=== PATIENT | male | born 1945 | race Caucasian/White ===

== ENCOUNTER 2016-09-22 00:22 | Inpatient (IN) | payer MEDICARE ==
--- NOTE | 2016-09-22 00:31 | ED ---
SOB HPI - General Stated Complaint: SOB Time Seen by Provider: 09/22/16 00:22 Source: patient, RN/MD, EMS, RN notes reviewed Mode of arrival: EMS - History of Present Illness Initial Comments: This is a 70-year-old male was seen at [facility] earlier yesterday evening and diagnosed with a pulmonary embolism in a lung mass. He went to the hospital complaining of shortness of breath and pleuritic-type chest pain. The results of the evaluation was he above. He currently denies any chest pain. He has no fevers chills or sweats at this time it is some sweats on the way down he states by ambulance is currently heparinized. He has no other complaints at this time. Is a former smoker who quit about 15 years ago. MD Complaint: shortness of breath, chest pain - Related Data Home Medications Medication Instructions Recorded Confirmed Aspirin 325 mg PO DAILY 09/22/16 09/22/16 Atorvastatin [Lipitor] 40 mg PO HS 09/22/16 09/22/16 Enalapril [Vasotec] 20 mg PO DAILY 09/22/16 09/22/16 Levothyroxine Sodium [Synthroid] 75 mcg PO DAILY 09/22/16 09/22/16 Metoprolol Succinate (ER) [Toprol 50 mg PO DAILY 09/22/16 09/22/16 Xl] buPROPion HCL [Wellbutrin XL] 300 mg PO DAILY 09/22/16 09/22/16 Allergies Allergy/AdvReac Type Severity Reaction Status Date / Time No Known Allergies Allergy Verified 09/22/16 00:29 Review of Systems ROS Statement: Those systems with pertinent positive or pertinent negative responses have been documented in the HPI. ROS Other: All systems not noted in ROS Statement are negative. General Exam - General Exam Comments Initial Comments: This is a well-developed well-nourished awake alert oriented 3 male General appearance: alert, in no apparent distress Head exam: Present: atraumatic, normocephalic, normal inspection Eye exam: Present: normal appearance, PERRL, EOMI. Absent: scleral icterus, conjunctival injection, periorbital swelling ENT exam: Present: normal exam, mucous membranes moist Neck exam: Present: normal inspection. Absent: tenderness, meningismus, lymphadenopathy Respiratory exam: Present: decreased breath sounds. Absent: respiratory distress, wheezes, rales, rhonchi, stridor Cardiovascular Exam: Present: regular rate, normal rhythm, normal heart sounds. Absent: systolic murmur, diastolic murmur, rubs, gallop, clicks GI/Abdominal exam: Present: soft, normal bowel sounds. Absent: distended, tenderness, guarding, rebound, rigid Extremities exam: Present: normal inspection, full ROM, normal capillary refill. Absent: tenderness, pedal edema, joint swelling, calf tenderness Back exam: Present: normal inspection Neurological exam: Present: alert, oriented X3, CN II-XII intact Psychiatric exam: Present: normal affect, normal mood Skin exam: Present: warm, dry, intact, normal color. Absent: rash Course Vital Signs 09/22/16 00:30 Temperature 98.7 F Pulse Rate 71 Respiratory 18 Rate Blood Pressure 123/56 O2 Sat by Pulse 94 L Oximetry Medical Decision Making - Medical Decision Making I discussed the patient's findings with the emergency department physician at [facility] also with Dr. Dawn. Patient be admitted with consultation by S/P ready - EKG Data -: EKG Interpreted by Me EKG shows normal: sinus rhythm (EKG shows a sinus rhythm of 71 with premature atrial complexes CA interval 170 QRS 154 QT/QTC of 474/5:15 evidence a left exodeviation right bundle-branch block nonspecific inferior changes and nonspecific T-wave configuration) Disposition Clinical Impression: Pulmonary embolism, Lung mass Disposition: ADMITTED IP TO THIS HOSP Condition: Serious Referrals: Eric Gardner MD [Primary Care Provider] - 1-2 days
[2016-09-22] MEDS ORDERED: NALOXONE 0.4 MG/ML 1 ML VIAL IV PRN (00:52)
[2016-09-22] MEDS: HEPARIN SODIUM,PORCINE/D5W PMX 25,000 UNIT in DEXTROSE/WATER 1 500ML.BAG IV SCH ×3 (00:57→22:19)
[2016-09-22] MEDS: SODIUM CHLORIDE 0.9% 1,000 ML IV SCH ×2 (01:03→16:10)
[2016-09-22] MEDS: IPRATROPIUM-ALBUTEROL 3 ML NEB INHALATION SCH ×3 (08:03→20:07)
[2016-09-22] MEDS: METOPROLOL SUCCINATE (ER) 50 MG TAB.ER.24H PO SCH (08:19)
[2016-09-22] MEDS: LISINOPRIL 20 MG TAB PO SCH (08:19)
[2016-09-22] MEDS: LEVOTHYROXINE 75 MCG TAB PO SCH (08:19)
[2016-09-22] MEDS: buPROPion XL 300 MG TAB.ER.24H PO SCH (08:19)
[2016-09-22] MEDS: ASPIRIN 325 MG TAB PO SCH (08:21)
[2016-09-22] MEDS: HEPARIN SODIUM,PORCINE 5,000 UNIT/ML 1 ML VIAL IV PRN ×2 (08:30→17:54)
[2016-09-22 08:51] LABS: INR 1.2 (<1.1); Prothrombin Time 12.2 sec (9.0-12.0)
--- NOTE | 2016-09-22 11:46 | US ---
EXAMINATION TYPE: US venous doppler duplex LE BI DATE OF EXAM: 09/22/2016 11:28 AM COMPARISON: Outside CTA chest from yesterday CLINICAL HISTORY: PE. On Heparin SIDE PERFORMED: Bilateral TECHNIQUE: The lower extremity deep venous system is examined utilizing real time linear array sonog jose with graded compression, doppler sonography and color-flow sonography. VESSELS IMAGED: External Iliac Vein (EIV) Common Femoral Vein Deep Femoral Vein Greater Saphenous Vein * Femoral Vein Popliteal Vein Small Saphenous Vein * Proximal Calf Veins (* superficial vessels) Right Leg: Appears negative for acute DVT Left Leg: Appears negative for acute DVT Grayscale, color doppler, spectral doppler imaging performed of the deep veins of the lower extremiti es. There is normal flow, compressibility, vascular waveforms bilaterally. IMPRESSION: No ultrasound evidence for acute DVT in either lower extremity. 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
[2016-09-22] MEDS: PANTOPRAZOLE 40 MG TABLET PO SCH (12:19)
--- NOTE | 2016-09-22 14:27 | P.CNPUL ---
History of Present Illness Consult date: 09/22/16 Reason for consult: pulmonary embolism Chief complaint: Shortness of breath History of present illness: 70 year old male presents to the emergency department from [facility] with shortness of breath and chest pain. The patient states he has been sick for over a week. He had fever and chills at home. He has a cough productive of phlegm. The patient had a CTA of the chest and it showed a right PE and possible mass. The patient states he is a former smoker, quit 15 years ago. He has no history of prior PE/DVT. He is c/o left calf pain. Review of Systems All systems: negative Past Medical History Past Medical History: Coronary Artery Disease (CAD), Hypertension, Myocardial Infarction (GA), Osteoarthritis (OA), Thyroid Disorder Last Myocardial Infarction Date:: 1992 History of Any Multi-Drug Resistant Organisms: None Reported Past Surgical History: AICD, Heart Catheterization With Stent Date of Last Stent Placement:: 1992 Type of Cardiac Device: AICD Device Placement Date:: 2005 Past Psychological History: Anxiety Smoking Status: Former smoker - Past Family History Mother Family Medical History: Cancer, Myocardial Infarction (GA) Additional Family Medical History / Comment(s): Breast, TIAs Father Additional Family Medical History / Comment(s): Alzheimers Brother(s) Family Medical History: Unable to Obtain Sister(s) Additional Family Medical History / Comment(s): anxiety attacks Medications and Allergies Home Medications Medication Instructions Recorded Confirmed Type Aspirin 325 mg PO DAILY 09/22/16 09/22/16 History Atorvastatin [Lipitor] 40 mg PO HS 09/22/16 09/22/16 History Enalapril [Vasotec] 20 mg PO DAILY 09/22/16 09/22/16 History Levothyroxine Sodium [Synthroid] 75 mcg PO DAILY 09/22/16 09/22/16 History Metoprolol Succinate (ER) [Toprol 50 mg PO DAILY 09/22/16 09/22/16 History Xl] buPROPion HCL [Wellbutrin XL] 300 mg PO DAILY 09/22/16 09/22/16 History Allergies Allergy/AdvReac Type Severity Reaction Status Date / Time No Known Allergies Allergy Verified 09/22/16 07:41 Physical Exam Osteopathic Statement: *. No significant issues noted on an osteopathic structural exam other than those noted in the History and Physical/Consult. Vitals: Vital Signs Temp Pulse Pulse Resp BP BP Pulse Ox 09/22/16 14:05 68 09/22/16 13:57 72 09/22/16 11:57 96.9 F L 68 20 108/63 100 09/22/16 08:16 68 09/22/16 08:07 70 94 L 09/22/16 08:00 96.7 F L 68 20 118/68 94 L 09/22/16 03:43 69 18 09/22/16 03:42 69 18 112/62 96 09/22/16 01:45 81 16 09/22/16 01:18 81 18 119/69 97 09/22/16 00:40 97.9 F 70 22 116/93 93 L 09/22/16 00:30 98.7 F 71 18 123/56 94 L Intake and Output 09/21/16 09/22/16 09/22/16 22:59 06:59 14:59 Intake Total 320 1570.000 Output Total 420 Balance -100 1570.000 Intake: Intake, IV Titration 320 500.000 Amount Heparin Sodium,Porcine/ 500.000 D5w Pmx 25,000 unit In Dextrose/Water 1 500ml. bag @ 15.948 UNITS/KG/HR 46 mls/hr IV .[id number] [facility] Rx#:[id number] Sodium Chloride 0.9% 1, 320 000 ml @ 80 mls/hr IV . [id number] [facility] Rx#:[id number] Oral 1070 Output: Urine 420 Other: Voiding Method Urinal Urinal Weight 138 kg General: Alert and oriented 3, no acute distress, obese Cardiovascular: Regular rate and rhythm, S1/S2 Lungs: Diminished breath sounds bilaterally Abdomen: Soft nontender nondistended positive bowel sounds Extremities: Trace edema, left calf tender to palpation Results - Laboratory Findings PT/INR, D-dimer PT 12.2 sec (9.0-12.0) H 09/22/16 06:23 INR 1.2 (<1.1) 09/22/16 06:23 Abnormal lab findings: Abnormal Labs 09/22/16 09/22/16 06:23 06:23 PT 12.2 H APTT 41.8 H - Diagnostic Findings Chest x-ray: report reviewed, image reviewed CT scan - chest: report reviewed, image reviewed Assessment and Plan Plan: Acute right coronary embolism Possible right-sided lung mass versus infectious etiology Right-sided chest pain Morbid obesity History of tobacco abuse Left calf pain Dyspnea on exertion O2 to maintain saturation greater than equal to 88% Heparin drip Lower extremity Dopplers Check echocardiogram Antibiotics: Levaquin Sputum culture Bronchodilators CT of the abdomen and pelvis to assess for other suspicious lesions Unable to do bronchoscopy with biopsy at this time secondary to acute PE, this is discussed with the patient and his A repeat CT will be done in 4-6 weeks as an outpatient after treatment with antibiotics If suspicious lesion remains we will consider PET scan and biopsy at that time Consult case management for insurance coverage regarding anticoagulation Thank you for this consultation. We will continue to follow along.
--- NOTE | 2016-09-22 16:05 | CT ---
EXAMINATION TYPE: CT abdomen pelvis wo con DATE OF EXAM: 09/22/2016 COMPARISON: September 21, 2016, obtained at an outside institution, [facility]. HISTORY: Known PE, assess for metastatic lesions. CT DLP: 1184.00 mGycm Automated exposure control for dose reduction was used. TECHNIQUE: Helical acquisition of images was performed from the lung bases through the pelvis. FINDINGS: LUNG BASES: There is opacification at the right lung base. This is only seen on the first image. This focus measures 1.8 x 1.0 cm. This is stable when compared to the prior outside CT scan and will requ lakeisha follow-up. Pacer leads are noted within the heart. There is a small right-sided pleural effusion with resultant passive atelectasis. There is a tiny pericardial effusion. Dilation of the visceral organs is limited without intravenous contrast. There is also mild dependent changes noted at the right lung base. LIVER/GB: No significant abnormality is appreciated. The gallbladder is contracted. There is no intra or extrahepatic biliary ductal dilatation. PANCREAS: No significant abnormality is seen. SPLEEN: No significant abnormality is seen. ADRENALS: No significant abnormality is seen. KIDNEYS: No significant abnormality is seen. FREE AIR: No free air is visualized RETROPERITONEAL ADENOPATHY: None visualized REPRODUCTIVE ORGANS: Prostate calcifications are noted. There are bilateral fat filled inguinal herni as which are also noted. URINARY BLADDER: Opacified urine is noted in the urinary bladder from prior outside CT scan. PELVIC ADENOPATHY: None visualized. OSSEOUS STRUCTURES: No significant abnormality is seen. BOWEL: Multiple diverticula are identified in the sigmoid colon. There is no evidence of acute diver ticulitis. IMPRESSION: 1.8 CM NODULE AT THE LEFT LUNG BASE. THIS WILL REQUIRE FOLLOW-UP. DIVERTICULOSIS.
[2016-09-22] MEDS: LEVOFLOXACIN 500MG-D5W PMX 500 MG in DEXTROSE/WATER 1 100ML.BAG IVPB SCH (16:10)
--- NOTE | 2016-09-22 16:50 | P.HPIM ---
History of Present Illness H&P Date: 09/22/16 Chief Complaint: Severe dyspnea and shortness of breath, chest pain, pulmonary embolism, lef 70-year-old male one of Dr. Eric Gardner's patient with past medical history of COPD, CAD, advanced cardiomyopathy post AICD, history of hypothyroidism and history of obstructive sleep apnea who was smoked or for over 30 years quit 10 years ago has been doing well until the last few days when he become with worsening shortness of breath cough and wheezes symptoms become much worse ended up seen Dr. Gardner this past week chest x-ray apparently was performed and failed to show any infiltrate consistent as a pneumonia. Patient having has discomfort and shortness of breath become much worse last night ended up going to [place] emergency department where was seen and evaluated his d-dimer came back elevated with significantly abnormal CTA consistent with large pulmonary embolism. Patient was started on heparin drip his CAT scan also showed 1.8 cm nodule lung base with the current symptoms and needing pulmonary physician patient was transferred to [facility] where was seen in the emergency room and hospitalized shortly after on heparin drip for his PE will consult pulmonary for his lung mass. Review of Systems Constitutional: Reports fatigue, Reports fever, Reports lethargy, Reports malaise, Reports weakness, Denies as per HPI, Denies anorexia, Denies chills, Denies chronic headaches, Denies chronic pain, Denies daytime sleepiness, Denies night sweats, Denies poor appetite, Denies sweats, Denies weight gain, Denies weight loss Eyes: bilateral as per HPI, bilateral blurred vision Ears: bilateral: decreased hearing Ears, nose, mouth and throat: Reports ant. neck pain, Reports nasal congestion, Reports nasal discharge, Reports sinus pain, Reports sinus pressure, Denies as per HPI, Denies bleeding gums, Denies dental pain, Denies dysphagia, Denies epistaxis, Denies headache, Denies hoarseness, Denies mouth pain, Denies neck fullness/pressure, Denies neck lump, Denies nose pain, Denies odynophagia, Denies post-nasal drip, Denies swelling in mouth, Denies swelling in throat, Denies sore throat, Denies vertigo, Denies voice changes Cardiovascular: Reports chest pain, Reports decreased exercise tolerance, Reports high blood pressure, Reports paroxysmal nocturnal dyspnea, Reports rapid heart beat, Reports shortness of breath, Denies as per HPI, Denies claudication, Denies dyspnea on exertion, Denies edema, Denies irregular heart beat, Denies leg edema, Denies lightheadedness, Denies orthopnea, Denies palpitations, Denies phlebitis, Denies syncope Respiratory: Reports congestion, Reports cough, Reports dyspnea, Reports pain on inspiration, Reports respiratory infections, Reports sleep apnea, Reports wheezing, Denies as per HPI, Denies cough with sputum, Denies excessive sputum, Denies hemoptysis, Denies home oxygen, Denies pain, Denies pleurisy, Denies snoring Gastrointestinal: Reports abdominal pain, Reports bloating, Reports dyspepsia, Reports early satiety, Reports indigestion, Reports nausea, Denies as per HPI, Denies belching, Denies BRBPR, Denies change in bowel habits, Denies coffee ground emesis, Denies constipation, Denies diarrhea, Denies excessive gas, Denies heartburn, Denies hematemesis, Denies hematochezia, Denies jaundice, Denies lactose intolerance, Denies loss of appetite, Denies melena, Denies vomiting Genitourinary: Reports hematuria, Reports impotence, Reports polyuria, Reports urinary frequency, Denies as per HPI, Denies decreased libido, Denies difficulties fathering child, Denies discharge, Denies dysuria, Denies erectile dysfunction, Denies flank pain, Denies genital pain, Denies genital sores, Denies incontinence, Denies kidney stones, Denies nocturia, Denies testicular lump, Denies testicular pain, Denies urinary hesitancy, Denies urinary retention Musculoskeletal: Reports low back pain, Reports myalgias, Reports neck pain, Denies as per HPI, Denies arm numbness/tingling, Denies atrophy, Denies fractures, Denies frequent falls, Denies gait dysfunction, Denies hot joints, Denies leg numbness/tingling, Denies limitation of motion, Denies loss of height , Denies morning stiffness, Denies muscle cramps, Denies muscle weakness, Denies neck stiffness, Denies prior amputations, Denies redness of joints, Denies shooting arm pain, Denies shooting leg pain Integumentary: Denies as per HPI, Denies acne, Denies boils, Denies brittle nails, Denies change in hair/nails, Denies color changes, Denies darkening of skin, Denies depigmentation, Denies dryness, Denies foot/leg ulcers, Denies growths, Denies hirsutism, Denies lesions, Denies onychomycosis, Denies pruritus , Denies rash, Denies sores, Denies striae, Denies unusual bruising, Denies wounds Neurological: Reports paresthesias, Reports tingling, Denies as per HPI, Denies aphasia, Denies ataxia, Denies balance difficulties, Denies burning pain, Denies change in mentation, Denies change in smell/taste, Denies change in speech, Denies confusion, Denies convulsions, Denies double vision, Denies gait dysfunction, Denies head injury, Denies headaches, Denies hearing difficulties, Denies lack of coordination, Denies loss of vision, Denies memory loss, Denies migraines, Denies motor disturbance, Denies numbness, Denies paralysis, Denies seizures, Denies sensory deficit, Denies spasticity, Denies syncope, Denies tic , Denies transient paralysis, Denies tremors, Denies vertigo, Denies weakness, Denies visual changes Psychiatric: Reports anhedonia, Reports depression, Reports mood swings, Denies as per HPI, Denies anxiety, Denies anxiety attacks, Denies change in appetite, Denies change in libido, Denies change in sleep habits, Denies confusion, Denies difficulty concentrating, Denies disorientation, Denies hallucinations, Denies hopelessness, Denies hypersomnia, Denies insomnia, Denies irritability, Denies memory loss, Denies paranoia, Denies sadness/tearfulness, Denies sleep disturbances, Denies suicidal ideation Endocrine: Reports cold intolerance, Reports excessive sweating, Reports fatigue , Reports nocturia, Reports polyuria, Reports proptosis, Denies as per HPI, Denies deepening of the voice, Denies excessive thirst, Denies flushing, Denies heat intolerance, Denies high blood sugars, Denies increase in ring/shoe/hat size, Denies low blood sugars, Denies palpitations, Denies polydipsia, Denies polyphagia, Denies recent glucocorticoid use, Denies thyroid mass, Denies weight change Hematologic/Lymphatic: Reports easy bruising, Reports lymphadenopathy, Denies as per HPI, Denies easy bleeding, Denies lymphedema, Denies thrombophilia Allergic/Immunologic: Reports allergic rhinitis, Denies as per HPI, Denies anaphylaxis, Denies angioedema, Denies gluten intolerance, Denies persistent infections, Denies seasonal allergies, Denies urticaria, Denies wheezing Past Medical History Past Medical History: Coronary Artery Disease (CAD), Hypertension, Myocardial Infarction (OR), Osteoarthritis (OA), Thyroid Disorder Last Myocardial Infarction Date:: 1992 History of Any Multi-Drug Resistant Organisms: None Reported Past Surgical History: AICD, Heart Catheterization With Stent Date of Last Stent Placement:: 1992 Type of Cardiac Device: AICD Device Placement Date:: 2005 Past Psychological History: Anxiety Smoking Status: Former smoker - Past Family History Mother Family Medical History: Cancer, Myocardial Infarction (OR) Additional Family Medical History / Comment(s): Breast, TIAs Father Additional Family Medical History / Comment(s): Alzheimers Brother(s) Family Medical History: Unable to Obtain Sister(s) Additional Family Medical History / Comment(s): anxiety attacks Medications and Allergies Home Medications Medication Instructions Recorded Confirmed Type Aspirin 325 mg PO DAILY 09/22/16 09/22/16 History Atorvastatin [Lipitor] 40 mg PO HS 09/22/16 09/22/16 History Enalapril [Vasotec] 20 mg PO DAILY 09/22/16 09/22/16 History Levothyroxine Sodium [Synthroid] 75 mcg PO DAILY 09/22/16 09/22/16 History Metoprolol Succinate (ER) [Toprol 50 mg PO DAILY 09/22/16 09/22/16 History Xl] buPROPion HCL [Wellbutrin XL] 300 mg PO DAILY 09/22/16 09/22/16 History Allergies Allergy/AdvReac Type Severity Reaction Status Date / Time No Known Allergies Allergy Verified 09/22/16 07:41 Physical Exam Vitals: Vital Signs Temp Pulse Pulse Resp BP BP Pulse Ox 09/22/16 15:48 96.7 F L 78 20 123/64 98 09/22/16 14:05 68 09/22/16 13:57 72 09/22/16 11:57 96.9 F L 68 20 108/63 100 09/22/16 08:16 68 09/22/16 08:07 70 94 L 09/22/16 08:00 96.7 F L 68 20 118/68 94 L 09/22/16 03:43 69 18 09/22/16 03:42 69 18 112/62 96 09/22/16 01:45 81 16 09/22/16 01:18 81 18 119/69 97 09/22/16 00:40 97.9 F 70 22 116/93 93 L 09/22/16 00:30 98.7 F 71 18 123/56 94 L Intake and Output 09/22/16 09/22/16 09/22/16 06:59 14:59 22:59 Intake Total 320 3150.400 Output Total 420 Balance -100 3150.400 Intake: IV 620.4 Heparin Sodium,Porcine/ 620.4 D5w Pmx 25,000 unit In Dextrose/Water 1 500ml. bag @ 15.948 UNITS/KG/HR 46 mls/hr IV .[id number] [facility] Rx#:[id number] Intake, IV Titration 320 1460.000 Amount Heparin Sodium,Porcine/ 500.000 D5w Pmx 25,000 unit In Dextrose/Water 1 500ml. bag @ 15.948 UNITS/KG/HR 46 mls/hr IV .[id number] [facility] Rx#:[id number] Sodium Chloride 0.9% 1, 320 960 000 ml @ 80 mls/hr IV . [id number] [facility] Rx#:[id number] Oral 1070 Output: Urine 420 Other: Voiding Method Urinal Urinal Urinal Weight 138 kg - Constitutional General appearance: no average body habitus, cooperative, no disheveled, no mild distress, no morbidly obese, no acute distress, no obese, no severe distress, no thin - EENT Eyes: no abnormal pupil, no anicteric sclerae, no disc margins sharp, no edentulous, no EOMI, no PERRLA, no fundus normal, no photophobia, no dentition normal, no poor dentition, no ptosis, no scleral icterus, normal appearance ENT: hard of hearing, no hearing grossly normal, no NA/AT, normal oropharynx, no other, no pharyngeal erythema, no thrush, no tonsillar exudates, no tonsillar swelling Ears: bilateral: normal - Neck Neck: no lymphadenopathy, normal ROM, no other, no rigidity, no stridor, no thyromegaly Carotids: bilateral: upstroke normal Thyroid: bilateral: normal size - Respiratory Respiratory: bilateral: diminished, dullness, rales, rhonchi, wheezing - Cardiovascular Rhythm: regular Heart sounds: normal: S1, S2 Abnormal Heart Sounds: systolic murmur - Gastrointestinal General gastrointestinal: no absent bowel sounds, no decreased bowel sounds, distended, no hepatomegaly, no hyperactive bowel sounds, normal bowel sounds, organomegaly, no rigid, no scaphoid, no soft, splenomegaly, tenderness, no umbilical hernia, no ventral hernia - Integumentary Integumentary: no calor, no cellulitis, cyanotic, no decreased turgor, no flushed, no jaundiced, normal, no normal turgor, pale, rash, no ulcer - Neurologic Neurologic: CNII-XII intact - Musculoskeletal Musculoskeletal: gait normal, generalized weakness, no strength equal bilaterally, no right sided weakness, no left sided weakness - Psychiatric Psychiatric: A&O x's 3, appropriate affect Results Labs: Abnormal Lab Results - Last 24 Hours (Table) 09/22/16 09/22/16 09/22/16 Range/Units 06:23 06:23 16:06 PT 12.2 H (9.0-12.0) sec APTT 41.8 H 45.9 H (22.0-30.0) sec Thrombosis Risk Factor Assmnt - DVT/VTE Prophylaxis DVT/VTE Prophylaxis: Pharmacologic Prophylaxis ordered, Mechanical Prophylaxis ordered - Choose All That Apply Any of the Below Risk Factors Present?: Yes Each Factor Represents 1 point: Swollen legs (current) Each Risk Factor Represents 3 Points: History of DVT/PE Thrombosis Risk Factor Assessment Total Risk Factor Score: 4 Thrombosis Risk Factor Assessment Level: Moderate Risk Assessment and Plan Plan: 1 acute pulmonary embolism: Etiology still not a clear this point the patient diagnosed with lung cancer can explain the PE otherwise we will do bilateral leg Doppler to exclude any DVT had a created the PE. Patient will be seen pulmonary continue heparin drip and will try to justify patient for one of the new was agent for anticoagulation like Xarelto 15 mg twice a day prescription was giving to the shoe parts caser to see if it's approved by insurance for him when he is closer leave the hospital. 2 new diagnosis lung mass more like nodular in the left lower lobe: Patient be seen pulmonary surprisingly this finding especially with the new PE would not be easy to do bronchoscopy and biopsy that required taking him off anticoagulation completely since the spot is small will await for pulmonary final decision might be ramírez just to watch it and repeat another CAT scan in the next few weeks. 3 CAD/cardiomyopathy: Patient seen cardiology regular basis he is on Vasotec metoprolol and Lipitor patient can benefit from diuretics if needed. 4 hypertension: Remain well controlled on Vasotec 20 mg a day and metoprolol XL 50 mg daily. 5 hyperlipidemia: Continue Lipitor 40 mg daily. 6 hypothyroidism: Continue patient on levothyroxine 75 g daily. 7 severe depression: Has been on Wellbutrin 300 mg a day. 8 obstructive sleep apnea: Patient has been using CPAP on regular basis. 9 hyperglycemia: Continue patient on Accu-Chek sliding skills coverage. 10 severe CAD post angioplasty and stent placement still seeing cardiology and still on secondary prevention. 11 GI prophylaxis: Patient was started on pantoprazole 40 mg daily. 12 DVT prophylaxis: Patient is on anticoagulation already. CODE STATUS: Full code. Expectation from's admission: Patient be the hospital for more than 2 nights.
[2016-09-22] MEDS ORDERED: IPRATROPIUM-ALBUTEROL 3 ML NEB INHALATION PRN (21:09)
[2016-09-22] MEDS: ATORVASTATIN 40 MG TAB PO SCH (22:28)
[2016-09-22] MEDS ORDERED: POTASSIUM CHLORIDE ER 20 MEQ TAB.ER PO STA (23:08)
[2016-09-23] MEDS: SODIUM CHLORIDE 0.9% 1,000 ML IV SCH ×2 (05:58→16:24)
[2016-09-23 06:01] LABS: Basophils % (A) 0 %; CHCM 32.2; Eosinophils # (A) 0.1 k/uL (0-0.7); Eosinophils % (A) 0 %; HCT 34.5 % (39.0-53.0); HDW 2.52; HGB 11.7 gm/dL (13.0-17.5); Luc # (Auto) 0.34; Luc % (Auto) 1; Lymphocytes # (A) 1.3 k/uL (1.0-4.8); Lymphocytes % (A) 5 %; MCH 30.5 pg (25.0-35.0); MCHC 33.8 g/dL (31.0-37.0); MCV 90.4 fL (80.0-100.0); Mean Platelet Volume 7.1; Monocytes % (A) 4 %; Neutrophils # (A) 21.9 k/uL (1.3-7.7); Neutrophils % (A) 89 %; RBC 3.82 m/uL (4.30-5.90); RDW 13.8 % (11.5-15.5); WBC 24.7 k/uL (3.8-10.6); WBC (Perox) 25.87
[2016-09-23 06:30] LABS: ALT 51 U/L (21-72); AST 52 U/L (17-59); Alkaline Phosphatase 123 U/L (38-126); Anion Gap 10 mmol/L; Blood Urea Nitrogen 30 mg/dL (9-20); Calcium 8.2 mg/dL (8.4-10.2); Carbon Dioxide 22 mmol/L (22-30); Chloride 103 mmol/L (98-107); Glucose 120 mg/dL (74-99); Non-African American GFR(MDRD) >60 (>60 ml/min/1.73 sqM); Potassium 4.5 mmol/L (3.5-5.1); Sodium 135 mmol/L (137-145); Total Bilirubin 0.5 mg/dL (0.2-1.3); Total Protein 5.8 g/dL (6.3-8.2)
[2016-09-23] MEDS: PANTOPRAZOLE 40 MG TABLET PO SCH (07:08)
[2016-09-23] MEDS: HEPARIN SODIUM,PORCINE/D5W PMX 25,000 UNIT in DEXTROSE/WATER 1 500ML.BAG IV SCH ×2 (08:39→16:23)
[2016-09-23] MEDS: LEVOTHYROXINE 75 MCG TAB PO SCH (08:46)
[2016-09-23] MEDS: LISINOPRIL 20 MG TAB PO SCH (08:46)
[2016-09-23] MEDS: METOPROLOL SUCCINATE (ER) 50 MG TAB.ER.24H PO SCH (08:46)
[2016-09-23] MEDS: buPROPion XL 300 MG TAB.ER.24H PO SCH (08:46)
[2016-09-23] MEDS: ASPIRIN 325 MG TAB PO SCH (08:46)
[2016-09-23] MEDS: IPRATROPIUM-ALBUTEROL 3 ML NEB INHALATION SCH ×4 (09:20→18:55)
--- NOTE | 2016-09-23 13:34 | PN ---
DATE OF SERVICE: 09/23/2016 The patient has been hemodynamically stable. He does not complain of chest pain. He is less short of breath. On physical examination, his blood pressure is 121/59, respiratory rate of 18, pulse of 77, temperature 96.4. O2 sat on 2L by nasal cannula is 95%. HEENT: Pupils are equal. Chest reveals scattered crackles on the right. Cardiovascular system reveals an S1, S2. ABDOMEN: Soft. There is no edema. IMPRESSION: 1. Left lower lobe lung mass for which he may require an outpatient followup with CT in about 6 weeks and possibly PET scan and then consideration for biopsy versus watching will be entertained. 2. Massive pulmonary embolus for which he would require lifelong anticoagulation. His has been on Coumadin and he is tending toward considering being on Coumadin. 3. Changes in the right lung parenchyma which may be due to pulmonary infarct versus other inflammatory etiology. Continue anticoagulant. Continue Levaquin. Continue GI prophylaxis. Depending on how he does, we shall make further changes to his care.
--- NOTE | 2016-09-23 14:38 | P.PN ---
Subjective 70-year-old male one of Dr. Eric Gardner's patient with past medical history of COPD, CAD, advanced cardiomyopathy post AICD, history of hypothyroidism and history of obstructive sleep apnea who was smoked or for over 30 years quit 10 years ago has been doing well until the last few days when he become with worsening shortness of breath cough and wheezes symptoms become much worse ended up seen Dr. Gardner this past week chest x-ray apparently was performed and failed to show any infiltrate consistent as a pneumonia. Patient having has discomfort and shortness of breath become much worse last night ended up going to [place] emergency department where was seen and evaluated his d-dimer came back elevated with significantly abnormal CTA consistent with large pulmonary embolism. Patient was started on heparin drip his CAT scan also showed 1.8 cm nodule lung base with the current symptoms and needing pulmonary physician patient was transferred to [facility] where was seen in the emergency room and hospitalized shortly after on heparin drip for his PE will consult pulmonary for his lung mass. 09/23/2016: Patient is feeling better today, he denies any chest pain, is less short of breath, he continues to have some coughing, his was at the bedside she is requesting a nebulizer to go home with, and they cannot afford Xarelto at this point in time, we will plan to use Coumadin instead of NOAG. Objective - Vital Signs Vital signs: Vital Signs Temp 96.4 F L 09/23/16 08:00 Pulse 74 09/23/16 09:30 Resp 18 09/23/16 08:00 BP 121/59 09/23/16 08:00 Pulse Ox 95 09/23/16 08:00 Intake & Output 09/22/16 09/23/16 09/23/16 18:59 06:59 18:59 Intake Total 3675.888 1887.267 7.245 Output Total 825 Balance 3675.888 1062.267 7.245 Weight 149 kg Intake: IV 620.4 Heparin Sodium,Porcine/ 620.4 D5w Pmx 25,000 unit In Dextrose/Water 1 500ml. bag @ 15.948 UNITS/KG/HR 46 mls/hr IV .[id number] [facility] Rx#:[id number] Intake, IV Titration 5658.168 8324.267 7.245 Amount Heparin Sodium,Porcine/ 785.488 707.267 7.245 D5w Pmx 25,000 unit In Dextrose/Water 1 500ml. bag @ 15.948 UNITS/KG/HR 46 mls/hr IV .[id number] [facility] Rx#:[id number] Sodium Chloride 0.9% 1, 960 980 000 ml @ 80 mls/hr IV . [id number] [facility] Rx#:[id number] Oral 1310 200 Output: Urine 825 Other: Voiding Method Urinal Urinal # Voids 1 - Exam - Constitutional General appearance: no average body habitus, cooperative, no disheveled, no mild distress, no morbidly obese, no acute distress, no obese, no severe distress, no thin - EENT Eyes: no abnormal pupil, no anicteric sclerae, no disc margins sharp, no edentulous, no EOMI, no PERRLA, no fundus normal, no photophobia, no dentition normal, no poor dentition, no ptosis, no scleral icterus, normal appearance ENT: hard of hearing, no hearing grossly normal, no NA/AT, normal oropharynx, no other, no pharyngeal erythema, no thrush, no tonsillar exudates, no tonsillar swelling Ears: bilateral: normal - Neck Neck: no lymphadenopathy, normal ROM, no other, no rigidity, no stridor, no thyromegaly Carotids: bilateral: upstroke normal Thyroid: bilateral: normal size - Respiratory Respiratory: bilateral: diminished, dullness, rales, rhonchi, wheezing - Cardiovascular Rhythm: regular Heart sounds: normal: S1, S2 Abnormal Heart Sounds: systolic murmur - Gastrointestinal General gastrointestinal: no absent bowel sounds, no decreased bowel sounds, distended, no hepatomegaly, no hyperactive bowel sounds, normal bowel sounds, organomegaly, no rigid, no scaphoid, no soft, splenomegaly, tenderness, no umbilical hernia, no ventral hernia - Integumentary Integumentary: no calor, no cellulitis, cyanotic, no decreased turgor, no flushed, no jaundiced, normal, no normal turgor, pale, rash, no ulcer - Neurologic Neurologic: CNII-XII intact - Musculoskeletal Musculoskeletal: gait normal, generalized weakness, no strength equal bilaterally, no right sided weakness, no left sided weakness - Psychiatric Psychiatric: A&O x's 3, appropriate affect - Labs CBC & Chem 7: 09/23/16 05:49 09/23/16 05:49 Labs: Abnormal Lab Results - Last 24 Hours (Table) 09/22/16 09/22/16 09/23/16 Range/Units 16:06 23:34 05:49 WBC 24.7 H (3.8-10.6) k/uL RBC 3.82 L (4.30-5.90) m/uL Hgb 11.7 L (13.0-17.5) gm/dL Hct 34.5 L (39.0-53.0) % Neutrophils # 21.9 H (1.3-7.7) k/uL APTT 45.9 H 49.4 H (22.0-30.0) sec Sodium (137-145) mmol/L BUN (9-20) mg/dL Glucose (74-99) mg/dL Calcium (8.4-10.2) mg/dL Total Protein (6.3-8.2) g/dL Albumin (3.5-5.0) g/dL 09/23/16 09/23/16 Range/Units 05:49 05:49 WBC (3.8-10.6) k/uL RBC (4.30-5.90) m/uL Hgb (13.0-17.5) gm/dL Hct (39.0-53.0) % Neutrophils # (1.3-7.7) k/uL APTT 45.7 H (22.0-30.0) sec Sodium 135 L (137-145) mmol/L BUN 30 H (9-20) mg/dL Glucose 120 H (74-99) mg/dL Calcium 8.2 L (8.4-10.2) mg/dL Total Protein 5.8 L (6.3-8.2) g/dL Albumin 2.5 L (3.5-5.0) g/dL Assessment and Plan Plan: Assessment and Plan Plan: 1 acute pulmonary embolism: Etiology still not a clear this point. Continue patient on the heparin drip for the next 24 hours, and then they will start the patient on Coumadin at 7.5 mg at bedtime, as the patient and his are not interested in the NOAG. 2 new diagnosis lung mass more like nodular in the left lower lobe: Patient be seen pulmonary surprisingly this finding especially with the new PE would not be easy to do bronchoscopy and biopsy that required taking him off anticoagulation completely since the spot is small will await for pulmonary final decision might be ramírez just to watch it and repeat another CAT scan in the next few weeks. 3 CAD/cardiomyopathy: Patient seen cardiology regular basis he is on Vasotec metoprolol and Lipitor patient can benefit from diuretics if needed. 4 hypertension: Remain well controlled on Vasotec 20 mg a day and metoprolol XL 50 mg daily. 5 hyperlipidemia: Continue Lipitor 40 mg daily. 6 hypothyroidism: Continue patient on levothyroxine 75 g daily. 7 severe depression: Has been on Wellbutrin 300 mg a day. 8 obstructive sleep apnea: Patient has been using CPAP on regular basis. 9 hyperglycemia: Continue patient on Accu-Chek sliding skills coverage. 10 severe CAD post angioplasty and stent placement still seeing cardiology and still on secondary prevention. 11 GI prophylaxis: Patient was started on pantoprazole 40 mg daily. 12 DVT prophylaxis: Patient is on anticoagulation already. CODE STATUS: Full code.
[2016-09-23] MEDS: LEVOFLOXACIN 500MG-D5W PMX 500 MG in DEXTROSE/WATER 1 100ML.BAG IVPB SCH (16:24)
[2016-09-23] MEDS: ATORVASTATIN 40 MG TAB PO SCH (22:59)
[2016-09-24] MEDS: SODIUM CHLORIDE 0.9% 1,000 ML IV SCH ×2 (04:41→16:50)
[2016-09-24 06:26] LABS: Basophils % (A) 0 %; CH 28.9; CHCM 31.7; Eosinophils % (A) 0 %; HCT 35.1 % (39.0-53.0); HDW 2.39; HGB 11.1 gm/dL (13.0-17.5); Luc # (Auto) 0.33; Luc % (Auto) 2; Lymphocytes # (A) 1.3 k/uL (1.0-4.8); Lymphocytes % (A) 8 %; MCH 29.1 pg (25.0-35.0); MCHC 31.7 g/dL (31.0-37.0); MCV 91.6 fL (80.0-100.0); Mean Platelet Volume 7.2; Monocytes # (A) 1.1 k/uL (0-1.0); Monocytes % (A) 7 %; Neutrophils # (A) 13.9 k/uL (1.3-7.7); Neutrophils % (A) 84 %; RBC 3.83 m/uL (4.30-5.90); RDW 13.9 % (11.5-15.5); WBC 16.7 k/uL (3.8-10.6); WBC (Perox) 17.12
[2016-09-24 06:37] LABS: ALT 84 U/L (21-72); AST 65 U/L (17-59); Alkaline Phosphatase 146 U/L (38-126); Anion Gap 10 mmol/L; Blood Urea Nitrogen 20 mg/dL (9-20); Calcium 7.8 mg/dL (8.4-10.2); Carbon Dioxide 20 mmol/L (22-30); Chloride 103 mmol/L (98-107); Glucose 117 mg/dL (74-99); Non-African American GFR(MDRD) >60 (>60 ml/min/1.73 sqM); Potassium 4.2 mmol/L (3.5-5.1); Sodium 133 mmol/L (137-145); Total Bilirubin 0.4 mg/dL (0.2-1.3); Total Protein 5.3 g/dL (6.3-8.2)
[2016-09-24] MEDS: ASPIRIN 325 MG TAB PO SCH (08:22)
[2016-09-24] MEDS: METOPROLOL SUCCINATE (ER) 50 MG TAB.ER.24H PO SCH (08:23)
[2016-09-24] MEDS: buPROPion XL 300 MG TAB.ER.24H PO SCH (08:23)
[2016-09-24] MEDS: PANTOPRAZOLE 40 MG TABLET PO SCH (08:24)
[2016-09-24] MEDS: LEVOTHYROXINE 75 MCG TAB PO SCH (08:24)
[2016-09-24] MEDS: LISINOPRIL 20 MG TAB PO SCH (08:24)
[2016-09-24] MEDS: HEPARIN SODIUM,PORCINE/D5W PMX 25,000 UNIT in DEXTROSE/WATER 1 500ML.BAG IV SCH ×2 (09:03→16:48)
[2016-09-24] MEDS: IPRATROPIUM-ALBUTEROL 3 ML NEB INHALATION SCH ×4 (10:32→21:10)
--- NOTE | 2016-09-24 11:46 | P.PN ---
Subjective 70-year-old male one of Dr. Eric Gardner's patient with past medical history of COPD, CAD, advanced cardiomyopathy post AICD, history of hypothyroidism and history of obstructive sleep apnea who was smoked or for over 30 years quit 10 years ago has been doing well until the last few days when he become with worsening shortness of breath cough and wheezes symptoms become much worse ended up seen Dr. Gardner this past week chest x-ray apparently was performed and failed to show any infiltrate consistent as a pneumonia. Patient having has discomfort and shortness of breath become much worse last night ended up going to [place] emergency department where was seen and evaluated his d-dimer came back elevated with significantly abnormal CTA consistent with large pulmonary embolism. Patient was started on heparin drip his CAT scan also showed 1.8 cm nodule lung base with the current symptoms and needing pulmonary physician patient was transferred to [facility] where was seen in the emergency room and hospitalized shortly after on heparin drip for his PE will consult pulmonary for his lung mass. 09/23/2016: Patient is feeling better today, he denies any chest pain, is less short of breath, he continues to have some coughing, his was at the bedside she is requesting a nebulizer to go home with, and they cannot afford Xarelto at this point in time, we will plan to use Coumadin instead of NOAG. 09/24/2016: Patient is a young man in no apparent distress, he denies any shortness of breath, he denies any pleurisy, he has no hemoptysis, he continues to respond very well to the therapy, he would be started on Coumadin at 7.5 mg tonight. Continue heparin drip until his INR therapeutic. Objective - Vital Signs Vital signs: Vital Signs Temp 97.5 F L 09/24/16 08:00 Pulse 84 09/24/16 08:00 Resp 20 09/24/16 08:00 BP 150/82 09/24/16 08:00 Pulse Ox 94 L 09/24/16 08:00 Intake & Output 09/23/16 09/24/16 09/24/16 18:59 06:59 18:59 Intake Total 1734.780 752 3909 Output Total 500 1000 575 Balance 1234.160 -600 1345 Weight 142.7 kg Intake: IV 1138.4 960 Heparin Sodium,Porcine/ 498.4 D5w Pmx 25,000 unit In Dextrose/Water 1 500ml. bag @ 15.948 UNITS/KG/HR 46 mls/hr IV .[id number] [facility] Rx#:[id number] Sodium Chloride 0.9% 1, 640 960 000 ml @ 80 mls/hr IV . [id number] [facility] Rx#:[id number] Intake, IV Titration 595.760 960 Amount Heparin Sodium,Porcine/ 495.760 D5w Pmx 25,000 unit In Dextrose/Water 1 500ml. bag @ 15.948 UNITS/KG/HR 46 mls/hr IV .[id number] [facility] Rx#:[id number] Levofloxacin 500Mg-D5w 100 Pmx 500 mg In Dextrose/ Water 1 100ml.bag @ 100 mls/hr IVPB Q24H [facility] Rx#: [id number] Sodium Chloride 0.9% 1, 960 000 ml @ 80 mls/hr IV . [id number] [facility] Rx#:[id number] Oral 400 Output: Urine 500 1000 575 Other: Voiding Method Urinal # Voids 1 # Bowel Movements 1 - Exam - Constitutional General appearance: no average body habitus, cooperative, no disheveled, no mild distress, no morbidly obese, no acute distress, no obese, no severe distress, no thin - EENT Eyes: no abnormal pupil, no anicteric sclerae, no disc margins sharp, no edentulous, no EOMI, no PERRLA, no fundus normal, no photophobia, no dentition normal, no poor dentition, no ptosis, no scleral icterus, normal appearance ENT: hard of hearing, no hearing grossly normal, no NA/AT, normal oropharynx, no other, no pharyngeal erythema, no thrush, no tonsillar exudates, no tonsillar swelling Ears: bilateral: normal - Neck Neck: no lymphadenopathy, normal ROM, no other, no rigidity, no stridor, no thyromegaly Carotids: bilateral: upstroke normal Thyroid: bilateral: normal size - Respiratory Respiratory: bilateral: diminished, dullness, rales, rhonchi, wheezing - Cardiovascular Rhythm: regular Heart sounds: normal: S1, S2 Abnormal Heart Sounds: systolic murmur - Gastrointestinal General gastrointestinal: no absent bowel sounds, no decreased bowel sounds, distended, no hepatomegaly, no hyperactive bowel sounds, normal bowel sounds, organomegaly, no rigid, no scaphoid, no soft, splenomegaly, tenderness, no umbilical hernia, no ventral hernia - Integumentary Integumentary: no calor, no cellulitis, cyanotic, no decreased turgor, no flushed, no jaundiced, normal, no normal turgor, pale, rash, no ulcer - Neurologic Neurologic: CNII-XII intact - Musculoskeletal Musculoskeletal: gait normal, generalized weakness, no strength equal bilaterally, no right sided weakness, no left sided weakness - Psychiatric Psychiatric: A&O x's 3, appropriate affect - Labs CBC & Chem 7: 09/24/16 05:55 09/24/16 05:55 Labs: Abnormal Lab Results - Last 24 Hours (Table) 09/23/16 09/24/16 09/24/16 Range/Units 14:21 05:55 05:55 WBC 16.7 H (3.8-10.6) k/uL RBC 3.83 L (4.30-5.90) m/uL Hgb 11.1 L (13.0-17.5) gm/dL Hct 35.1 L (39.0-53.0) % Neutrophils # 13.9 H (1.3-7.7) k/uL Monocytes # 1.1 H (0-1.0) k/uL APTT 58.8 H (22.0-30.0) sec Sodium 133 L (137-145) mmol/L Carbon Dioxide 20 L (22-30) mmol/L Glucose 117 H (74-99) mg/dL Calcium 7.8 L (8.4-10.2) mg/dL AST 65 H (17-59) U/L ALT 84 H (21-72) U/L Alkaline Phosphatase 146 H (38-126) U/L Total Protein 5.3 L (6.3-8.2) g/dL Albumin 2.4 L (3.5-5.0) g/dL 09/24/16 Range/Units 05:55 WBC (3.8-10.6) k/uL RBC (4.30-5.90) m/uL Hgb (13.0-17.5) gm/dL Hct (39.0-53.0) % Neutrophils # (1.3-7.7) k/uL Monocytes # (0-1.0) k/uL APTT 67.0 H (22.0-30.0) sec Sodium (137-145) mmol/L Carbon Dioxide (22-30) mmol/L Glucose (74-99) mg/dL Calcium (8.4-10.2) mg/dL AST (17-59) U/L ALT (21-72) U/L Alkaline Phosphatase (38-126) U/L Total Protein (6.3-8.2) g/dL Albumin (3.5-5.0) g/dL Microbiology - Last 24 Hours (Table) 09/23/16 09:35 Gram Stain - Final Sputum Sputum Culture - Final Assessment and Plan Plan: Assessment and Plan Plan: 1 acute pulmonary embolism: Etiology still not a clear this point. Continue patient on the heparin drip for the next 24 hours, and then they will start the patient on Coumadin at 7.5 mg at bedtime, as the patient and his are not interested in the NOAG. 2 new diagnosis lung mass more like nodular in the left lower lobe: Patient be seen pulmonary surprisingly this finding especially with the new PE would not be easy to do bronchoscopy and biopsy that required taking him off anticoagulation completely since the spot is small will await for pulmonary final decision might be ramírez just to watch it and repeat another CAT scan in the next few weeks. 3 CAD/cardiomyopathy: Patient seen cardiology regular basis he is on Vasotec metoprolol and Lipitor patient can benefit from diuretics if needed. 4 hypertension: Remain well controlled on Vasotec 20 mg a day and metoprolol XL 50 mg daily. 5 hyperlipidemia: Continue Lipitor 40 mg daily. 6 hypothyroidism: Continue patient on levothyroxine 75 g daily. 7 severe depression: Has been on Wellbutrin 300 mg a day. 8 obstructive sleep apnea: Patient has been using CPAP on regular basis. 9 hyperglycemia: Continue patient on Accu-Chek sliding skills coverage. 10 severe CAD post angioplasty and stent placement still seeing cardiology and still on secondary prevention. 11 GI prophylaxis: Patient was started on pantoprazole 40 mg daily. 12 DVT prophylaxis: Patient is on anticoagulation already. CODE STATUS: Full code.
--- NOTE | 2016-09-24 12:52 | ECHOF ---
Referral Reason:PE MEASUREMENTS -------- HEIGHT: 185.4 cm WEIGHT: 137.9 kg BP: 108/68 IVSd: 1.4 cm (0.6 - 1.1) LVIDd: 6.6 cm (3.9 - 5.3) LVPWd: 1.5 cm (0.6 - 1.1) LVIDs: 4.1 cm LA Diam: 3.9 cm (2.7 - 3.8) RVIDd: 4.2 cm (< 3.3) LAESV Index (A-L): 26.79 ml/m Ao Diam: 4.0 cm (2.0 - 3.7) AV Cusp: 2.6 cm (1.5 - 2.6) EPSS: 1.2 cm MV E Reji: 0.93 m/s MV DecT: 388 ms MV A Reji: 0.59 m/s MV E/A Ratio: 1.57 RAP: 5.00 mmHg RVSP: 36.80 mmHg MV EF SLOPE: 87.05 mm/s (70 - 150) MV EXCURSION: 25.38 mm (> 18.000) FINDINGS -------- This was a technically difficult study with suboptimal views. The left ventricle is moderately dilated. There is moderate concentric left ventricular hypertrophy. Overall left ventricular systolic function is moderate-severely impaired with, an EF between 30 - 35 %. Mitral Doppler inflow pattern suggests diastolic filling abnormality 20.56. Basal inferior LV wall motion is hypokinetic. Basal inferoseptal LV wall motion is hypokinetic. Mid inferior LV wall motion is hypokinetic. Inferiorlateral Hypokinesis The right ventricle is severely enlarged. Normal LA size by volume 22+/-6 ml/m2. The right atrium was not well visualized. 1.5mg of Definity was utilized for enhancement of images The aortic valve was not well visualized. Mild mitral annular calcification present. Mild mitral regurgitation is present. Mild tricuspid regurgitation present. There is mild pulmonary hypertension. The right ventricular systolic pressure, as measured by Doppler, is 36.80mmHg. Cannot rule out vegetation. The pulmonic valve was not well visualized. The aortic root is dilated measuring 4.0cm. IVC Not well visulized. The pericardium is normal. CONCLUSIONS -------- 1. This was a technically difficult study with suboptimal views. 2. The right ventricle is severely enlarged. 3. Normal LA size by volume 22+/-6 ml/m2. 4. The right atrium was not well visualized. 5. 1.5mg of Definity was utilized for enhancement of images 6. The aortic valve was not well visualized. 7. Mild mitral annular calcification present. 8. Mild mitral regurgitation is present. 9. Mild tricuspid regurgitation present. 10. There is mild pulmonary hypertension. 11. The right ventricular systolic pressure, as measured by Doppler, is 36.80mmHg. 12. The left ventricle is moderately dilated. 13. Cannot rule out vegetation. 14. The pulmonic valve was not well visualized. 15. The aortic root is dilated measuring 4.0cm. 16. IVC Not well visulized. 17. The pericardium is normal. 18. There is moderate concentric left ventricular hypertrophy. 19. Overall left ventricular systolic function is moderate-severely impaired with, an EF between 30 - 35 %. 20. Mitral Doppler inflow pattern suggest diastolic filling abnormality 20.56. 21. Basal inferior LV wall motion is hypokinetic. 22. Basal inferoseptal LV wall motion is hypokinetic. 23. Mid inferior LV wall motion is hypokinetic. 24. Inferiorlateral Hypokinesis URGENT CARE PHYSICIAN ASSISTANT: Veda Haynes RDCS
--- NOTE | 2016-09-24 15:00 | PN ---
DATE OF SERVICE: 09/24/2016 He has no chest pain. He was sleeping and obviously seems to have obstructive sleep apnea as he is snoring with witnessed apneas. On physical examination, blood pressure 151/67, respiratory rate 20, pulse rate of 75, temperature 97.5, O2 sat on room air is 95%. HEENT is unremarkable. Chest reveals decreased breath sounds at the bases. Cardiovascular system reveals S1 and S2. ABDOMEN: Soft. There is trace edema. White count is 16.7, hemoglobin of 11.1. IMPRESSION: 1. Acute pulmonary embolus. 2. Possible right-sided pulmonary infarct versus pneumonia. 3. Pulmonary nodule on the left. 4. Cardiomyopathy. 5. Obstructive sleep apnea is likely. 6. History of coronary artery disease. At this point in time, agree with anticoagulation. He will require this lifelong. He will require a close follow-up as an outpatient with repeat CT scan in 4 to 6 weeks and possibly PET scan and further work-up based on findings at that time. Continue him on his current medications, which were reviewed.
[2016-09-24] MEDS ORDERED: WARFARIN 7.5 MG TAB PO ONE (18:00)
[2016-09-24] MEDS: LEVOFLOXACIN 500MG-D5W PMX 500 MG in DEXTROSE/WATER 1 100ML.BAG IVPB SCH (19:35)
[2016-09-24] MEDS: LEVOFLOXACIN 500 MG TAB PO SCH (21:43)
[2016-09-24] MEDS: ATORVASTATIN 40 MG TAB PO SCH (21:43)
[2016-09-25] MEDS: HEPARIN SODIUM,PORCINE/D5W PMX 25,000 UNIT in DEXTROSE/WATER 1 500ML.BAG IV SCH ×3 (04:42→17:37)
[2016-09-25 05:54] LABS: Basophils % (A) 0 %; CH 28.4; CHCM 31.2; Eosinophils % (A) 0 %; HCT 32.8 % (39.0-53.0); HDW 2.44; HGB 10.7 gm/dL (13.0-17.5); Hypochromasia Slight; Luc # (Auto) 0.39; Luc % (Auto) 2; Lymphocytes # (A) 1.2 k/uL (1.0-4.8); Lymphocytes % (A) 7 %; MCH 29.9 pg (25.0-35.0); MCHC 32.7 g/dL (31.0-37.0); MCV 91.6 fL (80.0-100.0); Mean Platelet Volume 6.7; Monocytes # (A) 0.7 k/uL (0-1.0); Monocytes % (A) 4 %; Neutrophils # (A) 14.1 k/uL (1.3-7.7); Neutrophils % (A) 86 %; RBC 3.59 m/uL (4.30-5.90); RDW 13.8 % (11.5-15.5); WBC 16.4 k/uL (3.8-10.6)
[2016-09-25 06:15] LABS: ALT 67 U/L (21-72); AST 39 U/L (17-59); Alkaline Phosphatase 153 U/L (38-126); Anion Gap 5 mmol/L; Blood Urea Nitrogen 12 mg/dL (9-20); Calcium 7.6 mg/dL (8.4-10.2); Carbon Dioxide 23 mmol/L (22-30); Chloride 105 mmol/L (98-107); Glucose 116 mg/dL (74-99); Non-African American GFR(MDRD) >60 (>60 ml/min/1.73 sqM); Potassium 4.1 mmol/L (3.5-5.1); Sodium 133 mmol/L (137-145); Total Bilirubin 0.5 mg/dL (0.2-1.3)
[2016-09-25 06:25] LABS: INR 1.3 (<1.1); Prothrombin Time 13.2 sec (9.0-12.0)
[2016-09-25 06:44] LABS: Partial Thromboplastin Time 111.2 sec (22.0-30.0)
[2016-09-25] MEDS: PANTOPRAZOLE 40 MG TABLET PO SCH (07:01)
[2016-09-25] MEDS: SODIUM CHLORIDE 0.9% 1,000 ML IV SCH ×2 (07:56→13:41)
[2016-09-25] MEDS: IPRATROPIUM-ALBUTEROL 3 ML NEB INHALATION SCH ×4 (08:05→20:45)
[2016-09-25] MEDS: LISINOPRIL 20 MG TAB PO SCH (08:41)
[2016-09-25] MEDS: METOPROLOL SUCCINATE (ER) 50 MG TAB.ER.24H PO SCH (08:41)
[2016-09-25] MEDS: ASPIRIN 325 MG TAB PO SCH (08:41)
[2016-09-25] MEDS: buPROPion XL 300 MG TAB.ER.24H PO SCH (09:23)
[2016-09-25] MEDS: LEVOTHYROXINE 75 MCG TAB PO SCH (09:23)
--- NOTE | 2016-09-25 13:22 | P.PN ---
Subjective 70-year-old male one of Dr. Eric Gardner's patient with past medical history of COPD, CAD, advanced cardiomyopathy post AICD, history of hypothyroidism and history of obstructive sleep apnea who was smoked or for over 30 years quit 10 years ago has been doing well until the last few days when he become with worsening shortness of breath cough and wheezes symptoms become much worse ended up seen Dr. Gardner this past week chest x-ray apparently was performed and failed to show any infiltrate consistent as a pneumonia. Patient having has discomfort and shortness of breath become much worse last night ended up going to [place] emergency department where was seen and evaluated his d-dimer came back elevated with significantly abnormal CTA consistent with large pulmonary embolism. Patient was started on heparin drip his CAT scan also showed 1.8 cm nodule lung base with the current symptoms and needing pulmonary physician patient was transferred to [facility] where was seen in the emergency room and hospitalized shortly after on heparin drip for his PE will consult pulmonary for his lung mass. 09/23/2016: Patient is feeling better today, he denies any chest pain, is less short of breath, he continues to have some coughing, his was at the bedside she is requesting a nebulizer to go home with, and they cannot afford Xarelto at this point in time, we will plan to use Coumadin instead of NOAG. 09/24/2016: Patient is a young man in no apparent distress, he denies any shortness of breath, he denies any pleurisy, he has no hemoptysis, he continues to respond very well to the therapy, he would be started on Coumadin at 7.5 mg tonight. Continue heparin drip until his INR therapeutic. 09/25/2016: Patient sitting up in bed appears to be more short of breath today, complaining phlegm drainage in the back of the throat, there is no pleurisy but appears to be more short of breath. He has no nausea vomiting or diarrhea. Objective - Vital Signs Vital signs: Vital Signs Temp 99 F 09/25/16 08:41 Pulse 79 09/25/16 08:41 Resp 20 09/25/16 08:41 BP 154/71 09/25/16 08:41 Pulse Ox 94 L 09/25/16 08:41 Intake & Output 09/24/16 09/25/16 09/25/16 18:59 06:59 18:59 Intake Total 1920 200 740 Output Total 1100 900 Balance 820 -700 740 Weight 143.7 kg Intake: IV 960 Sodium Chloride 0.9% 1, 960 000 ml @ 80 mls/hr IV . [id number] [facility] Rx#:[id number] Intake, IV Titration 960 500 Amount Heparin Sodium,Porcine/ 500 D5w Pmx 25,000 unit In Dextrose/Water 1 500ml. bag @ 15.948 UNITS/KG/HR 46 mls/hr IV .[id number] [facility] Rx#:[id number] Sodium Chloride 0.9% 1, 960 000 ml @ 80 mls/hr IV . [id number] [facility] Rx#:[id number] Oral 200 240 Output: Urine 1100 900 Other: Voiding Method Urinal Urinal # Voids 1 1 # Bowel Movements 1 1 - Exam - Constitutional General appearance: no average body habitus, cooperative, no disheveled, no mild distress, no morbidly obese, no acute distress, no obese, no severe distress, no thin - EENT Eyes: no abnormal pupil, no anicteric sclerae, no disc margins sharp, no edentulous, no EOMI, no PERRLA, no fundus normal, no photophobia, no dentition normal, no poor dentition, no ptosis, no scleral icterus, normal appearance ENT: hard of hearing, no hearing grossly normal, no NA/AT, normal oropharynx, no other, no pharyngeal erythema, no thrush, no tonsillar exudates, no tonsillar swelling Ears: bilateral: normal - Neck Neck: no lymphadenopathy, normal ROM, no other, no rigidity, no stridor, no thyromegaly Carotids: bilateral: upstroke normal Thyroid: bilateral: normal size - Respiratory Respiratory: bilateral: diminished, dullness, rales, rhonchi, wheezing - Cardiovascular Rhythm: regular Heart sounds: normal: S1, S2 Abnormal Heart Sounds: systolic murmur - Gastrointestinal General gastrointestinal: no absent bowel sounds, no decreased bowel sounds, distended, no hepatomegaly, no hyperactive bowel sounds, normal bowel sounds, organomegaly, no rigid, no scaphoid, no soft, splenomegaly, tenderness, no umbilical hernia, no ventral hernia - Integumentary Integumentary: no calor, no cellulitis, cyanotic, no decreased turgor, no flushed, no jaundiced, normal, no normal turgor, pale, rash, no ulcer - Neurologic Neurologic: CNII-XII intact - Musculoskeletal Musculoskeletal: gait normal, generalized weakness, no strength equal bilaterally, no right sided weakness, no left sided weakness - Psychiatric Psychiatric: A&O x's 3, appropriate affect - Labs CBC & Chem 7: 09/25/16 05:32 09/25/16 05:32 Labs: Abnormal Lab Results - Last 24 Hours (Table) 09/25/16 09/25/16 09/25/16 Range/Units 05:32 05:32 05:32 WBC 16.4 H (3.8-10.6) k/uL RBC 3.59 L (4.30-5.90) m/uL Hgb 10.7 L (13.0-17.5) gm/dL Hct 32.8 L (39.0-53.0) % Neutrophils # 14.1 H (1.3-7.7) k/uL PT 13.2 H (9.0-12.0) sec APTT 111.2 H* (22.0-30.0) sec Sodium 133 L (137-145) mmol/L Glucose 116 H (74-99) mg/dL Calcium 7.6 L (8.4-10.2) mg/dL Alkaline Phosphatase 153 H (38-126) U/L Total Protein 5.0 L (6.3-8.2) g/dL Albumin 2.2 L (3.5-5.0) g/dL Assessment and Plan Plan: Assessment and Plan Plan: 1 acute pulmonary embolism: Etiology still not a clear this point. Continue patient on the heparin drip for the next 24 hours, and then they will start the patient on Coumadin at 7.5 mg at bedtime, as the patient and his are not interested in the NOAG. INR still subtherapeutic 1.13, he would be getting another 7.5 mg of Coumadin tonight, we will check portable chest x-ray at this time, we will decrease IV fluid, we will start the patient on Lasix 40 mg IV push 1. 2 new diagnosis lung mass more like nodular in the left lower lobe: Patient be seen pulmonary surprisingly this finding especially with the new PE would not be easy to do bronchoscopy and biopsy that required taking him off anticoagulation completely since the spot is small will await for pulmonary final decision might be ramírez just to watch it and repeat another CAT scan in the next few weeks. 3 CAD/cardiomyopathy: Patient seen cardiology regular basis he is on Vasotec metoprolol and Lipitor patient can benefit from diuretics if needed. 4 hypertension: Remain well controlled on Vasotec 20 mg a day and metoprolol XL 50 mg daily. 5 hyperlipidemia: Continue Lipitor 40 mg daily. 6 hypothyroidism: Continue patient on levothyroxine 75 g daily. 7 severe depression: Has been on Wellbutrin 300 mg a day. 8 obstructive sleep apnea: Patient has been using CPAP on regular basis. 9 hyperglycemia: Continue patient on Accu-Chek sliding skills coverage. 10 severe CAD post angioplasty and stent placement still seeing cardiology and still on secondary prevention. 11 GI prophylaxis: Patient was started on pantoprazole 40 mg daily. 12 DVT prophylaxis: Patient is on anticoagulation already. CODE STATUS: Full code.
[2016-09-25] MEDS ORDERED: FUROSEMIDE 10 MG/ML 4 ML VIAL IV STA (13:23)
--- NOTE | 2016-09-25 13:54 | XR ---
EXAMINATION TYPE: XR chest 1V DATE OF EXAM: 09/25/2016 HISTORY: Shortness of breath. COMPARISON: Outside study dated 09/19/2016 TECHNIQUE: Single view of the chest is submitted. FINDINGS: Demonstrated are scattered senescent parenchymal change. Progressive infiltrates right perihilar and right upper lobe region. Right basilar atelectasis or add itional infiltrate. The heart is stable. Hilar and mediastinal structures are within normal limits. Degenerative changes are seen of the dorsal spine. IMPRESSION: 1. Progressive infiltrates right perihilar and right upper lobe region. Right basilar atelectasis or additional infiltrate.
--- NOTE | 2016-09-25 13:57 | PN ---
DATE OF SERVICE: 09/25/2016 He is less short of breath. He is awake, alert. On physical examination, blood pressure is 152/63, respiratory rate of 18, pulse rate of 64, temperature 96.4, O2 sat on room air is 95%. HEENT is unremarkable. Chest is clear. Cardiovascular, S1 and S2. Abdomen is soft. There is no pedal edema. IMPRESSION: 1. Pulmonary embolus that is ( ). 2. Left lower lobe small nodule. 3. Coronary artery disease. 4. History of congestive heart failure. At this point in time, would continue Coumadin. Increase activity level. Check a CT of the chest in about 6 weeks. Depending on how he does, we shall make further changes to his care.
[2016-09-25] MEDS ORDERED: WARFARIN 7.5 MG TAB PO ONE (18:00)
[2016-09-25] MEDS: ACETAMINOPHEN TAB 325 MG TAB PO PRN (21:26)
[2016-09-25] MEDS: LEVOFLOXACIN 500 MG TAB PO SCH (21:26)
[2016-09-25] MEDS: ATORVASTATIN 40 MG TAB PO SCH (22:02)
[2016-09-26] MEDS: HEPARIN SODIUM,PORCINE/D5W PMX 25,000 UNIT in DEXTROSE/WATER 1 500ML.BAG IV SCH ×3 (02:53→20:27)
[2016-09-26 06:39] LABS: Basophils % (A) 0 %; CH 28.8; Eosinophils # (A) 0.1 k/uL (0-0.7); Eosinophils % (A) 1 %; HCT 33.9 % (39.0-53.0); HDW 2.48; HGB 10.8 gm/dL (13.0-17.5); Luc % (Auto) 2; Lymphocytes # (A) 1.2 k/uL (1.0-4.8); Lymphocytes % (A) 7 %; MCH 28.9 pg (25.0-35.0); MCV 90.5 fL (80.0-100.0); Mean Platelet Volume 6.9; Monocytes # (A) 0.9 k/uL (0-1.0); Monocytes % (A) 5 %; Neutrophils # (A) 14.9 k/uL (1.3-7.7); Neutrophils % (A) 86 %; RBC 3.75 m/uL (4.30-5.90); WBC 17.3 k/uL (3.8-10.6); WBC (Perox) 18.92
[2016-09-26] MEDS: PANTOPRAZOLE 40 MG TABLET PO SCH (06:39)
[2016-09-26 06:42] LABS: INR 1.4 (<1.1); Partial Thromboplastin Time 58.1 sec (22.0-30.0); Prothrombin Time 13.4 sec (9.0-12.0)
[2016-09-26 07:20] LABS: ALT 58 U/L (21-72); AST 33 U/L (17-59); Alkaline Phosphatase 145 U/L (38-126); Anion Gap 8 mmol/L; Blood Urea Nitrogen 12 mg/dL (9-20); Carbon Dioxide 24 mmol/L (22-30); Chloride 100 mmol/L (98-107); Glucose 113 mg/dL (74-99); Non-African American GFR(MDRD) >60 (>60 ml/min/1.73 sqM); Potassium 3.8 mmol/L (3.5-5.1); Sodium 132 mmol/L (137-145); Total Bilirubin 0.6 mg/dL (0.2-1.3); Total Protein 5.4 g/dL (6.3-8.2)
[2016-09-26] MEDS: IPRATROPIUM-ALBUTEROL 3 ML NEB INHALATION SCH ×4 (07:31→20:04)
[2016-09-26] MEDS: ASPIRIN 325 MG TAB PO SCH (08:44)
[2016-09-26] MEDS: LISINOPRIL 20 MG TAB PO SCH (08:44)
[2016-09-26] MEDS: buPROPion XL 300 MG TAB.ER.24H PO SCH (08:44)
[2016-09-26] MEDS: LEVOTHYROXINE 75 MCG TAB PO SCH (08:44)
[2016-09-26] MEDS: METOPROLOL SUCCINATE (ER) 50 MG TAB.ER.24H PO SCH (08:44)
[2016-09-26] MEDS: SODIUM CHLORIDE 0.9% 1,000 ML IV SCH (11:12)
--- NOTE | 2016-09-26 12:31 | P.PN ---
Subjective 70-year-old male one of Dr. Eric Gardner's patient with past medical history of COPD, CAD, advanced cardiomyopathy post AICD, history of hypothyroidism and history of obstructive sleep apnea who was smoked or for over 30 years quit 10 years ago has been doing well until the last few days when he become with worsening shortness of breath cough and wheezes symptoms become much worse ended up seen Dr. Gardner this past week chest x-ray apparently was performed and failed to show any infiltrate consistent as a pneumonia. Patient having has discomfort and shortness of breath become much worse last night ended up going to [place] emergency department where was seen and evaluated his d-dimer came back elevated with significantly abnormal CTA consistent with large pulmonary embolism. Patient was started on heparin drip his CAT scan also showed 1.8 cm nodule lung base with the current symptoms and needing pulmonary physician patient was transferred to [facility] where was seen in the emergency room and hospitalized shortly after on heparin drip for his PE will consult pulmonary for his lung mass. 09/23/2016: Patient is feeling better today, he denies any chest pain, is less short of breath, he continues to have some coughing, his was at the bedside she is requesting a nebulizer to go home with, and they cannot afford Xarelto at this point in time, we will plan to use Coumadin instead of NOAG. 09/24/2016: Patient is a young man in no apparent distress, he denies any shortness of breath, he denies any pleurisy, he has no hemoptysis, he continues to respond very well to the therapy, he would be started on Coumadin at 7.5 mg tonight. Continue heparin drip until his INR therapeutic. 09/25/2016: Patient sitting up in bed appears to be more short of breath today, complaining phlegm drainage in the back of the throat, there is no pleurisy but appears to be more short of breath. He has no nausea vomiting or diarrhea. 09/26: Repeat chest x-ray shows progressive infiltrates in the right perihilar and right upper lobe region. Right basilar atelectasis or additional infiltrate. Echo cardio gram shows mild mitral regurgitation, mild tricuspid regurgitation, mild pulmonary hypertension, cannot rule out vegetation, moderate concentric left ventricular hypertrophy, EF 30-35%, LV wall hypokinetic. INR is currently 1.4. He has continued on heparin drip as well. Coumadin 7.5 mg will be given tonight. Liver function tests are improving with alkaline phosphatase 145. Sputum culture showing contamination. Objective - Vital Signs Vital signs: Vital Signs Temp 96.6 F L 09/26/16 08:44 Pulse 78 09/26/16 08:44 Resp 18 09/26/16 08:44 BP 130/63 09/26/16 08:44 Pulse Ox 95 09/26/16 08:44 Intake & Output 09/25/16 09/26/16 09/26/16 18:59 06:59 18:59 Intake Total 2031.406 914 Output Total 1550 Balance 2031.406 -636 Weight 144.2 kg Intake: IV 216 414 Heparin Sodium,Porcine/ 196 414 D5w Pmx 25,000 unit In Dextrose/Water 1 500ml. bag @ 15.948 UNITS/KG/HR 46 mls/hr IV .[id number] [facility] Rx#:[id number] Sodium Chloride 0.9% 1, 20 000 ml @ 80 mls/hr IV . [id number] [facility] Rx#:[id number] Intake, IV Titration 993.406 500 Amount Heparin Sodium,Porcine/ 993.406 500 D5w Pmx 25,000 unit In Dextrose/Water 1 500ml. bag @ 15.948 UNITS/KG/HR 46 mls/hr IV .[id number] [facility] Rx#:[id number] Oral 822 Output: Urine 1550 Other: Voiding Method Urinal Urinal Urinal # Voids 1 - Exam General appearance: no average body habitus, cooperative, no disheveled, no mild distress, no morbidly obese, no acute distress, no obese, no severe distress, no thin - EENT Eyes: no abnormal pupil, no anicteric sclerae, no disc margins sharp, no edentulous, no EOMI, no PERRLA, no fundus normal, no photophobia, no dentition normal, no poor dentition, no ptosis, no scleral icterus, normal appearance ENT: hard of hearing, no hearing grossly normal, no NA/AT, normal oropharynx, no other, no pharyngeal erythema, no thrush, no tonsillar exudates, no tonsillar swelling Ears: bilateral: normal - Neck Neck: no lymphadenopathy, normal ROM, no other, no rigidity, no stridor, no thyromegaly Carotids: bilateral: upstroke normal Thyroid: bilateral: normal size - Respiratory Respiratory: bilateral: diminished, dullness, rales, rhonchi, wheezing - Cardiovascular Rhythm: regular Heart sounds: normal: S1, S2 Abnormal Heart Sounds: systolic murmur - Gastrointestinal General gastrointestinal: no absent bowel sounds, no decreased bowel sounds, distended, no hepatomegaly, no hyperactive bowel sounds, normal bowel sounds, organomegaly, no rigid, no scaphoid, no soft, splenomegaly, tenderness, no umbilical hernia, no ventral hernia - Integumentary Integumentary: no calor, no cellulitis, cyanotic, no decreased turgor, no flushed, no jaundiced, normal, no normal turgor, pale, rash, no ulcer - Neurologic Neurologic: CNII-XII intact - Musculoskeletal Musculoskeletal: gait normal, generalized weakness, no strength equal bilaterally, no right sided weakness, no left sided weakness - Psychiatric Psychiatric: A&O x's 3, appropriate affect - Labs CBC & Chem 7: 09/26/16 06:16 09/26/16 06:16 Labs: Abnormal Lab Results - Last 24 Hours (Table) 09/25/16 09/26/16 09/26/16 Range/Units 14:14 06:16 06:16 WBC 17.3 H (3.8-10.6) k/uL RBC 3.75 L (4.30-5.90) m/uL Hgb 10.8 L (13.0-17.5) gm/dL Hct 33.9 L (39.0-53.0) % Neutrophils # 14.9 H (1.3-7.7) k/uL PT 13.4 H (9.0-12.0) sec APTT 55.2 H 58.1 H (22.0-30.0) sec Sodium (137-145) mmol/L Glucose (74-99) mg/dL Calcium (8.4-10.2) mg/dL Alkaline Phosphatase (38-126) U/L Total Protein (6.3-8.2) g/dL Albumin (3.5-5.0) g/dL 09/26/16 Range/Units 06:16 WBC (3.8-10.6) k/uL RBC (4.30-5.90) m/uL Hgb (13.0-17.5) gm/dL Hct (39.0-53.0) % Neutrophils # (1.3-7.7) k/uL PT (9.0-12.0) sec APTT (22.0-30.0) sec Sodium 132 L (137-145) mmol/L Glucose 113 H (74-99) mg/dL Calcium 8.0 L (8.4-10.2) mg/dL Alkaline Phosphatase 145 H (38-126) U/L Total Protein 5.4 L (6.3-8.2) g/dL Albumin 2.4 L (3.5-5.0) g/dL Assessment and Plan Plan: 1 acute pulmonary embolism: Etiology still not a clear this point. Continue patient on the heparin drip for the next 24 hours, and then they will start the patient on Coumadin at 7.5 mg at bedtime, as the patient and his are not interested in the NOAG. Continue heparin and Coumadin. 2 new diagnosis lung mass more like nodular in the left lower lobe: Patient be seen pulmonary surprisingly this finding especially with the new PE would not be easy to do bronchoscopy and biopsy that required taking him off anticoagulation completely since the spot is small will await for pulmonary final decision might be ramírez just to watch it and repeat another CAT scan in [address] ALEX Donohue. 3 CAD/cardiomyopathy: Patient seen cardiology regular basis he is on Vasotec metoprolol and Lipitor patient can benefit from diuretics if needed. 4 hypertension: Remain well controlled on Vasotec 20 mg a day and metoprolol XL 50 mg daily. 5 hyperlipidemia: Continue Lipitor 40 mg daily. 6 hypothyroidism: Continue patient on levothyroxine 75 g daily. 7 severe depression: Has been on Wellbutrin 300 mg a day. 8 obstructive sleep apnea: Patient has been using CPAP on regular basis. 9 hyperglycemia: Continue patient on Accu-Chek sliding skills coverage. 10 severe CAD post angioplasty and stent placement still seeing cardiology and still on secondary prevention. 11 GI prophylaxis: Patient was started on pantoprazole 40 mg daily. 12 DVT prophylaxis: Patient is on anticoagulation already. 13. Possible obstructive sleep apnea. Patient will need outpatient sleep study done at some point. CODE STATUS: Full code. Discharge plan: Return home Impression and plan of care have been directed as dictated by the signing physician. Stefany Zelaya nurse practitioner acting as scribe for signing physician.
[2016-09-26] MEDS ORDERED: WARFARIN 7.5 MG TAB PO ONE (18:00)
--- NOTE | 2016-09-26 19:48 | PN ---
DATE OF SERVICE: 09/26/2016 Patient is hemodynamically stable. He is less short of breath. He is starting to walk around. On room air his oxygen saturation is 95%. Blood pressure is 130/ 63, respiratory rate of 18, pulse rate of 78, temperature 96.6. HEENT is unremarkable. Chest is clear. Cardiovascular system is in S1, S2. Abdomen is soft. There is 1+ edema. IMPRESSION AT THIS TIME: 1. Massive pulmonary embolus. Optimize Coumadin and bridge with heparin. 2. Lung nodule on the left, significance of which is unclear, for which a repeat CT scan in 4 to 6 weeks and possibly a PET scan will be done. 3. Obesity with obstructive sleep apnea, for which he would required outpatient followup. 4. Obesity. He was counseled regarding his condition and our approach. His prognosis is fair. RADHA
[2016-09-26] MEDS: LEVOFLOXACIN 500 MG TAB PO SCH (20:26)
[2016-09-26] MEDS: ATORVASTATIN 40 MG TAB PO SCH (20:26)
[2016-09-26] MEDS: ACETAMINOPHEN TAB 325 MG TAB PO PRN (21:17)
[2016-09-27] MEDS: HEPARIN SODIUM,PORCINE/D5W PMX 25,000 UNIT in DEXTROSE/WATER 1 500ML.BAG IV SCH ×2 (05:37→16:07)
[2016-09-27 07:29] LABS: INR 1.6 (<1.1); Partial Thromboplastin Time 63.1 sec (22.0-30.0); Prothrombin Time 15.4 sec (9.0-12.0)
[2016-09-27 07:34] LABS: ALT 48 U/L (21-72); AST 29 U/L (17-59); Alkaline Phosphatase 143 U/L (38-126); Anion Gap 7 mmol/L; Blood Urea Nitrogen 11 mg/dL (9-20); Calcium 7.9 mg/dL (8.4-10.2); Carbon Dioxide 23 mmol/L (22-30); Chloride 102 mmol/L (98-107); Glucose 109 mg/dL (74-99); Non-African American GFR(MDRD) >60 (>60 ml/min/1.73 sqM); Potassium 4.1 mmol/L (3.5-5.1); Sodium 132 mmol/L (137-145); Total Bilirubin 0.7 mg/dL (0.2-1.3); Total Protein 5.9 g/dL (6.3-8.2)
[2016-09-27] MEDS: IPRATROPIUM-ALBUTEROL 3 ML NEB INHALATION SCH ×4 (07:51→19:50)
[2016-09-27 07:58] LABS: CH 28.1; CHCM 31.5; HCT 33.3 % (39.0-53.0); HDW 2.54; HGB 11.1 gm/dL (13.0-17.5); Hypochromasia Slight; MCH 29.8 pg (25.0-35.0); MCHC 33.3 g/dL (31.0-37.0); MCV 89.5 fL (80.0-100.0); Mean Platelet Volume 6.6; RBC 3.72 m/uL (4.30-5.90); RDW 13.8 % (11.5-15.5)
[2016-09-27] MEDS: buPROPion XL 300 MG TAB.ER.24H PO SCH (09:08)
[2016-09-27] MEDS: PANTOPRAZOLE 40 MG TABLET PO SCH (09:08)
[2016-09-27] MEDS: ASPIRIN 325 MG TAB PO SCH (09:08)
[2016-09-27] MEDS: LEVOTHYROXINE 75 MCG TAB PO SCH (09:08)
[2016-09-27] MEDS: LISINOPRIL 20 MG TAB PO SCH (09:09)
[2016-09-27] MEDS: METOPROLOL SUCCINATE (ER) 50 MG TAB.ER.24H PO SCH (09:09)
[2016-09-27 11:52] VITALS: BMI 41.9
--- NOTE | 2016-09-27 12:13 | P.PN ---
Subjective Principal diagnosis: Pulmonary embolism Patient seen and examined. Patient states he is feeling better overall. He was able to ambulate in the hallway. He states he did have to take some breaks but did well overall. Is currently on room air. Objective - Vital Signs Vital signs: Vital Signs Temp 97.8 F 09/27/16 07:00 Pulse 80 09/27/16 11:42 Resp 20 09/27/16 07:00 BP 181/87 09/27/16 07:00 Pulse Ox 93 L 09/27/16 07:56 Intake & Output 09/26/16 09/27/16 09/27/16 18:59 06:59 18:59 Intake Total 6695.381 1530.767 203.093 Output Total 2450 Balance 1649.333 -557.233 203.093 Weight 144.2 kg Intake: IV 435 653 Heparin Sodium,Porcine/ 435 653 D5w Pmx 25,000 unit In Dextrose/Water 1 500ml. bag @ 15.948 UNITS/KG/HR 46 mls/hr IV .[id number] [facility] Rx#:[id number] Intake, IV Titration 068.777 3273.767 203.093 Amount Heparin Sodium,Porcine/ 454.333 999.767 203.093 D5w Pmx 25,000 unit In Dextrose/Water 1 500ml. bag @ 15.948 UNITS/KG/HR 46 mls/hr IV .[id number] [facility] Rx#:[id number] Sodium Chloride 0.9% 1, 160 240 000 ml @ 20 mls/hr IV . Q24H [facility] Rx#:[id number] Oral 600 Output: Urine 2450 Other: Voiding Method Urinal Urinal Urinal - Exam General: Alert and oriented 3, no acute distress, obese Cardiovascular: Regular rate and rhythm, S1/S2 Lungs: Diminished breath sounds bilaterally Abdomen: Soft nontender nondistended positive bowel sounds Extremities: Trace edema - Labs CBC & Chem 7: 09/27/16 06:39 09/27/16 06:39 Labs: Abnormal Lab Results - Last 24 Hours (Table) 09/27/16 09/27/16 09/27/16 Range/Units 06:39 06:39 06:39 WBC 16.0 H (3.8-10.6) k/uL RBC 3.72 L (4.30-5.90) m/uL Hgb 11.1 L (13.0-17.5) gm/dL Hct 33.3 L (39.0-53.0) % PT 15.4 H (9.0-12.0) sec APTT 63.1 H (22.0-30.0) sec Sodium 132 L (137-145) mmol/L Glucose 109 H (74-99) mg/dL Calcium 7.9 L (8.4-10.2) mg/dL Alkaline Phosphatase 143 H (38-126) U/L Total Protein 5.9 L (6.3-8.2) g/dL Albumin 2.4 L (3.5-5.0) g/dL Assessment and Plan Plan: Acute right pulmonary embolism Possible right-sided lung mass versus infectious etiology Pulmonary nodule - left Right-sided chest pain Morbid obesity KEN History of tobacco abuse Dyspnea on exertion O2 to maintain saturation greater than equal to 88% Heparin drip - bridge to Coumadin Antibiotics: Levaquin x 10 days total Bronchodilators Unable to do bronchoscopy with biopsy at this time secondary to acute PE, this is discussed with the patient and his A repeat CT will be done in 4-6 weeks as an outpatient after treatment with antibiotics If suspicious lesion remains we will consider PET scan Encourage ambulation
[2016-09-27] MEDS: SODIUM CHLORIDE 0.9% 1,000 ML IV SCH (13:09)
--- NOTE | 2016-09-27 14:05 | P.PN ---
Subjective 70-year-old male one of Dr. Eric Gardner's patient with past medical history of COPD, CAD, advanced cardiomyopathy post AICD, history of hypothyroidism and history of obstructive sleep apnea who was smoked or for over 30 years quit 10 years ago has been doing well until the last few days when he become with worsening shortness of breath cough and wheezes symptoms become much worse ended up seen Dr. Gardner this past week chest x-ray apparently was performed and failed to show any infiltrate consistent as a pneumonia. Patient having has discomfort and shortness of breath become much worse last night ended up going to [place] emergency department where was seen and evaluated his d-dimer came back elevated with significantly abnormal CTA consistent with large pulmonary embolism. Patient was started on heparin drip his CAT scan also showed 1.8 cm nodule lung base with the current symptoms and needing pulmonary physician patient was transferred to [facility] where was seen in the emergency room and hospitalized shortly after on heparin drip for his PE will consult pulmonary for his lung mass. 09/23/2016: Patient is feeling better today, he denies any chest pain, is less short of breath, he continues to have some coughing, his was at the bedside she is requesting a nebulizer to go home with, and they cannot afford Xarelto at this point in time, we will plan to use Coumadin instead of NOAG. 09/24/2016: Patient is a young man in no apparent distress, he denies any shortness of breath, he denies any pleurisy, he has no hemoptysis, he continues to respond very well to the therapy, he would be started on Coumadin at 7.5 mg tonight. Continue heparin drip until his INR therapeutic. 09/25/2016: Patient sitting up in bed appears to be more short of breath today, complaining phlegm drainage in the back of the throat, there is no pleurisy but appears to be more short of breath. He has no nausea vomiting or diarrhea. 09/26: Repeat chest x-ray shows progressive infiltrates in the right perihilar and right upper lobe region. Right basilar atelectasis or additional infiltrate. Echo cardio gram shows mild mitral regurgitation, mild tricuspid regurgitation, mild pulmonary hypertension, cannot rule out vegetation, moderate concentric left ventricular hypertrophy, EF 30-35%, LV wall hypokinetic. INR is currently 1.4. He has continued on heparin drip as well. Coumadin 7.5 mg will be given tonight. Liver function tests are improving with alkaline phosphatase 145. Sputum culture showing contamination. 09/27: Patient has been moved to the [facility] floor. INR today of 1.6. Patient will be continued on heparin drip and Coumadin 7.5 mg will be given tonight. Recheck INR in the morning. WBC is down to 16. Objective - Vital Signs Vital signs: Vital Signs Temp 97.8 F 09/27/16 07:00 Pulse 84 09/27/16 08:04 Resp 20 09/27/16 07:00 BP 181/87 09/27/16 07:00 Pulse Ox 93 L 09/27/16 07:56 Intake & Output 09/26/16 09/27/16 09/27/16 18:59 06:59 18:59 Intake Total 2772.737 5676.767 Output Total 2450 Balance 1649.333 -557.233 Intake: IV 435 653 Heparin Sodium,Porcine/ 435 653 D5w Pmx 25,000 unit In Dextrose/Water 1 500ml. bag @ 15.948 UNITS/KG/HR 46 mls/hr IV .[id number] [facility] Rx#:[id number] Intake, IV Titration 623.210 1559.767 Amount Heparin Sodium,Porcine/ 454.333 999.767 D5w Pmx 25,000 unit In Dextrose/Water 1 500ml. bag @ 15.948 UNITS/KG/HR 46 mls/hr IV .[id number] [facility] Rx#:[id number] Sodium Chloride 0.9% 1, 160 240 000 ml @ 20 mls/hr IV . Q24H [facility] Rx#:[id number] Oral 600 Output: Urine 2450 Other: Voiding Method Urinal Urinal - Exam General appearance: no average body habitus, cooperative, no disheveled, no mild distress, no morbidly obese, no acute distress, no obese, no severe distress, no thin - EENT Eyes: no abnormal pupil, no anicteric sclerae, no disc margins sharp, no edentulous, no EOMI, no PERRLA, no fundus normal, no photophobia, no dentition normal, no poor dentition, no ptosis, no scleral icterus, normal appearance ENT: hard of hearing, no hearing grossly normal, no NA/AT, normal oropharynx, no other, no pharyngeal erythema, no thrush, no tonsillar exudates, no tonsillar swelling Ears: bilateral: normal - Neck Neck: no lymphadenopathy, normal ROM, no other, no rigidity, no stridor, no thyromegaly Carotids: bilateral: upstroke normal Thyroid: bilateral: normal size - Respiratory Respiratory: bilateral: diminished, dullness, rales, rhonchi, wheezing - Cardiovascular Rhythm: regular Heart sounds: normal: S1, S2 Abnormal Heart Sounds: systolic murmur - Gastrointestinal General gastrointestinal: no absent bowel sounds, no decreased bowel sounds, distended, no hepatomegaly, no hyperactive bowel sounds, normal bowel sounds, organomegaly, no rigid, no scaphoid, no soft, splenomegaly, tenderness, no umbilical hernia, no ventral hernia - Integumentary Integumentary: no calor, no cellulitis, cyanotic, no decreased turgor, no flushed, no jaundiced, normal, no normal turgor, pale, rash, no ulcer - Neurologic Neurologic: CNII-XII intact - Musculoskeletal Musculoskeletal: gait normal, generalized weakness, no strength equal bilaterally, no right sided weakness, no left sided weakness - Psychiatric Psychiatric: A&O x's 3, appropriate affect - Labs CBC & Chem 7: 09/27/16 06:39 09/27/16 06:39 Labs: Abnormal Lab Results - Last 24 Hours (Table) 09/27/16 09/27/16 09/27/16 Range/Units 06:39 06:39 06:39 WBC 16.0 H (3.8-10.6) k/uL RBC 3.72 L (4.30-5.90) m/uL Hgb 11.1 L (13.0-17.5) gm/dL Hct 33.3 L (39.0-53.0) % PT 15.4 H (9.0-12.0) sec APTT 63.1 H (22.0-30.0) sec Sodium 132 L (137-145) mmol/L Glucose 109 H (74-99) mg/dL Calcium 7.9 L (8.4-10.2) mg/dL Alkaline Phosphatase 143 H (38-126) U/L Total Protein 5.9 L (6.3-8.2) g/dL Albumin 2.4 L (3.5-5.0) g/dL Assessment and Plan Plan: 1 acute pulmonary embolism: Etiology still not a clear this point. Continue heparin drip and Coumadin at 7.5 mg at bedtime, as the patient and his are not interested in the NOAG. Continue heparin and Coumadin. 2 new diagnosis lung mass more like nodular in the left lower lobe: Patient be seen pulmonary surprisingly this finding especially with the new PE would not be easy to do bronchoscopy and biopsy that required taking him off anticoagulation completely since the spot is small will await for pulmonary final decision might be ramírez just to watch it and repeat another CAT scan in [address] ALEX Donohue. 3 CAD/cardiomyopathy: Patient seen cardiology regular basis he is on Vasotec metoprolol and Lipitor patient can benefit from diuretics if needed. 4 hypertension: Remain well controlled on Vasotec 20 mg a day and metoprolol XL 50 mg daily. 5 hyperlipidemia: Continue Lipitor 40 mg daily. 6 hypothyroidism: Continue patient on levothyroxine 75 g daily. 7 severe depression: Has been on Wellbutrin 300 mg a day. 8 obstructive sleep apnea: Patient has been using CPAP on regular basis. 9 hyperglycemia: Continue patient on Accu-Chek sliding skills coverage. 10 severe CAD post angioplasty and stent placement still seeing cardiology and still on secondary prevention. 11 GI prophylaxis: Patient was started on pantoprazole 40 mg daily. 12 DVT prophylaxis: Patient is on anticoagulation already. 13. Possible obstructive sleep apnea. Patient will need outpatient sleep study done at some point. CODE STATUS: Full code. Discharge plan: Return home Impression and plan of care have been directed as dictated by the signing physician. Stefany Zelaya nurse practitioner acting as scribe for signing physician.
[2016-09-27] MEDS ORDERED: WARFARIN 7.5 MG TAB PO ONE (18:00)
[2016-09-27] MEDS: ATORVASTATIN 40 MG TAB PO SCH (23:03)
[2016-09-27] MEDS: LEVOFLOXACIN 500 MG TAB PO SCH (23:03)
[2016-09-28] MEDS: IPRATROPIUM-ALBUTEROL 3 ML NEB INHALATION SCH ×4 (07:25→18:20)
[2016-09-28 07:37] LABS: CHCM 31.6; HCT 29.8 % (39.0-53.0); HDW 2.56; HGB 10.1 gm/dL (13.0-17.5); Hypochromasia Slight; MCH 30.2 pg (25.0-35.0); MCV 88.9 fL (80.0-100.0); Mean Platelet Volume 6.9; RBC 3.35 m/uL (4.30-5.90); RDW 13.7 % (11.5-15.5); WBC 13.8 k/uL (3.8-10.6)
[2016-09-28 07:42] LABS: INR 1.7 (<1.1); Partial Thromboplastin Time 28.8 sec (22.0-30.0); Prothrombin Time 16.7 sec (9.0-12.0)
[2016-09-28 07:52] LABS: ALT 51 U/L (21-72); AST 32 U/L (17-59); Alkaline Phosphatase 157 U/L (38-126); Blood Urea Nitrogen 12 mg/dL (9-20); Calcium 8.1 mg/dL (8.4-10.2); Carbon Dioxide 24 mmol/L (22-30); Chloride 100 mmol/L (98-107); Glucose 91 mg/dL (74-99); Non-African American GFR(MDRD) >60 (>60 ml/min/1.73 sqM); Potassium 4.3 mmol/L (3.5-5.1); Total Bilirubin 0.6 mg/dL (0.2-1.3); Total Protein 5.8 g/dL (6.3-8.2)
[2016-09-28 07:54] LABS: Anion Gap 10 mmol/L; Sodium 134 mmol/L (137-145)
[2016-09-28] MEDS: HEPARIN SODIUM,PORCINE/D5W PMX 25,000 UNIT in DEXTROSE/WATER 1 500ML.BAG IV SCH ×2 (08:44→17:43)
[2016-09-28] MEDS: HEPARIN SODIUM,PORCINE 5,000 UNIT/ML 1 ML VIAL IV PRN (08:51)
[2016-09-28] MEDS: ASPIRIN 325 MG TAB PO SCH (08:57)
[2016-09-28] MEDS: LISINOPRIL 20 MG TAB PO SCH (08:58)
[2016-09-28] MEDS: METOPROLOL SUCCINATE (ER) 50 MG TAB.ER.24H PO SCH (08:58)
[2016-09-28] MEDS: PANTOPRAZOLE 40 MG TABLET PO SCH (08:58)
[2016-09-28] MEDS: buPROPion XL 300 MG TAB.ER.24H PO SCH (08:58)
[2016-09-28] MEDS: LEVOTHYROXINE 75 MCG TAB PO SCH (08:58)
[2016-09-28] MEDS ORDERED: FUROSEMIDE 10 MG/ML 4 ML VIAL IV STA (12:49)
[2016-09-28] MEDS ORDERED: POTASSIUM CHLORIDE ER 20 MEQ TAB.ER PO STA (12:49)
--- NOTE | 2016-09-28 12:51 | P.PN ---
Subjective Principal diagnosis: Pulmonary embolism Patient seen and examined. Patient states his breathing is better today. He is able to ambulate in the hallway. His is at bedside. They are hoping to go home soon. His INR today is 1.7. Objective - Vital Signs Vital signs: Vital Signs Temp 97.8 F 09/28/16 07:00 Pulse 80 09/28/16 11:31 Resp 20 09/28/16 08:00 BP 140/72 09/28/16 07:00 Pulse Ox 95 09/28/16 07:00 Intake & Output 09/27/16 09/28/16 09/28/16 18:59 06:59 18:59 Intake Total 377.365 3373 Output Total 650 1100 Balance -150.000 420 Weight 144.2 kg 144.2 kg Intake: Intake, IV Titration 500.000 500 Amount Heparin Sodium,Porcine/ 500.000 500 D5w Pmx 25,000 unit In Dextrose/Water 1 500ml. bag @ 15.948 UNITS/KG/HR 46 mls/hr IV .[id number] [facility] Rx#:[id number] Oral 1020 Output: Urine 650 1100 Other: Voiding Method Urinal Urinal Urinal # Voids 2 2 - Exam General: Alert and oriented 3, no acute distress, obese Cardiovascular: Regular rate and rhythm, S1/S2 Lungs: Diminished breath sounds bilaterally Abdomen: Soft nontender nondistended positive bowel sounds Extremities: Trace edema - Labs CBC & Chem 7: 09/28/16 06:49 09/28/16 06:49 Labs: Abnormal Lab Results - Last 24 Hours (Table) 09/28/16 09/28/16 09/28/16 Range/Units 06:49 06:49 06:49 WBC 13.8 H (3.8-10.6) k/uL RBC 3.35 L (4.30-5.90) m/uL Hgb 10.1 L (13.0-17.5) gm/dL Hct 29.8 L (39.0-53.0) % PT 16.7 H (9.0-12.0) sec Sodium 134 L (137-145) mmol/L Calcium 8.1 L (8.4-10.2) mg/dL Alkaline Phosphatase 157 H (38-126) U/L Total Protein 5.8 L (6.3-8.2) g/dL Albumin 2.5 L (3.5-5.0) g/dL Assessment and Plan Plan: Acute right pulmonary embolism Possible right-sided lung mass versus infectious etiology Pulmonary nodule - left Right-sided chest pain Morbid obesity KEN History of tobacco abuse Dyspnea on exertion O2 to maintain saturation greater than equal to 88% Heparin drip - bridge to Coumadin Antibiotics: Levaquin x 10 days total Bronchodilators Unable to do bronchoscopy with biopsy at this time secondary to acute PE, this is discussed with the patient and his A repeat CT will be done in 4-6 weeks as an outpatient after treatment with antibiotics If suspicious lesion remains we will consider PET scan Encourage ambulation
[2016-09-28] MEDS: BENZONATATE 100 MG CAP PO SCH ×2 (13:33→20:49)
[2016-09-28] MEDS: SODIUM CHLORIDE 0.9% 1,000 ML IV SCH (13:34)
--- NOTE | 2016-09-28 15:47 | P.PN ---
Subjective 70-year-old male one of Dr. Eric Gardner's patient with past medical history of COPD, CAD, advanced cardiomyopathy post AICD, history of hypothyroidism and history of obstructive sleep apnea who was smoked or for over 30 years quit 10 years ago has been doing well until the last few days when he become with worsening shortness of breath cough and wheezes symptoms become much worse ended up seen Dr. Gardner this past week chest x-ray apparently was performed and failed to show any infiltrate consistent as a pneumonia. Patient having has discomfort and shortness of breath become much worse last night ended up going to [place] emergency department where was seen and evaluated his d-dimer came back elevated with significantly abnormal CTA consistent with large pulmonary embolism. Patient was started on heparin drip his CAT scan also showed 1.8 cm nodule lung base with the current symptoms and needing pulmonary physician patient was transferred to [facility] where was seen in the emergency room and hospitalized shortly after on heparin drip for his PE will consult pulmonary for his lung mass. 09/23/2016: Patient is feeling better today, he denies any chest pain, is less short of breath, he continues to have some coughing, his was at the bedside she is requesting a nebulizer to go home with, and they cannot afford Xarelto at this point in time, we will plan to use Coumadin instead of NOAG. 09/24/2016: Patient is a young man in no apparent distress, he denies any shortness of breath, he denies any pleurisy, he has no hemoptysis, he continues to respond very well to the therapy, he would be started on Coumadin at 7.5 mg tonight. Continue heparin drip until his INR therapeutic. 09/25/2016: Patient sitting up in bed appears to be more short of breath today, complaining phlegm drainage in the back of the throat, there is no pleurisy but appears to be more short of breath. He has no nausea vomiting or diarrhea. 09/26: Repeat chest x-ray shows progressive infiltrates in the right perihilar and right upper lobe region. Right basilar atelectasis or additional infiltrate. Echo cardio gram shows mild mitral regurgitation, mild tricuspid regurgitation, mild pulmonary hypertension, cannot rule out vegetation, moderate concentric left ventricular hypertrophy, EF 30-35%, LV wall hypokinetic. INR is currently 1.4. He has continued on heparin drip as well. Coumadin 7.5 mg will be given tonight. Liver function tests are improving with alkaline phosphatase 145. Sputum culture showing contamination. 09/27: Patient has been moved to the [facility] floor. INR today of 1.6. Patient will be continued on heparin drip and Coumadin 7.5 mg will be given tonight. Recheck INR in the morning. WBC is down to 16. /: INR is 1.7, WBC 13.8. Patient will be given another 7.5 mg of Coumadin tonight and continued on heparin drip. Patient did have episode of V. tach but was asymptomatic yesterday, last evening. He is in a paced rhythm with AICD. Echocardiogram was recently done. He needs them level will be checked. Cardiology consult also added. Lasix 40 mg IV 1 ordered. Objective - Vital Signs Vital signs: Vital Signs Temp 97.8 F 09/28/16 07:00 Pulse 76 09/28/16 07:35 Resp 20 09/28/16 07:00 BP 140/72 09/28/16 07:00 Pulse Ox 95 09/28/16 07:00 Intake & Output 09/27/16 09/28/16 09/28/16 18:59 06:59 18:59 Intake Total 819.994 2700 Output Total 650 1100 Balance -150.000 420 Weight 144.2 kg 144.2 kg Intake: Intake, IV Titration 500.000 500 Amount Heparin Sodium,Porcine/ 500.000 500 D5w Pmx 25,000 unit In Dextrose/Water 1 500ml. bag @ 15.948 UNITS/KG/HR 46 mls/hr IV .[id number] [facility] Rx#:[id number] Oral 1020 Output: Urine 650 1100 Other: Voiding Method Urinal Urinal # Voids 2 2 - Exam General appearance: no average body habitus, cooperative, no disheveled, no mild distress, no morbidly obese, no acute distress, no obese, no severe distress, no thin - EENT Eyes: no abnormal pupil, no anicteric sclerae, no disc margins sharp, no edentulous, no EOMI, no PERRLA, no fundus normal, no photophobia, no dentition normal, no poor dentition, no ptosis, no scleral icterus, normal appearance ENT: hard of hearing, no hearing grossly normal, no NA/AT, normal oropharynx, no other, no pharyngeal erythema, no thrush, no tonsillar exudates, no tonsillar swelling Ears: bilateral: normal - Neck Neck: no lymphadenopathy, normal ROM, no other, no rigidity, no stridor, no thyromegaly Carotids: bilateral: upstroke normal Thyroid: bilateral: normal size - Respiratory Respiratory: bilateral: diminished, dullness, rales, rhonchi, wheezing - Cardiovascular Rhythm: regular Heart sounds: normal: S1, S2 Abnormal Heart Sounds: systolic murmur - Gastrointestinal General gastrointestinal: no absent bowel sounds, no decreased bowel sounds, distended, no hepatomegaly, no hyperactive bowel sounds, normal bowel sounds, organomegaly, no rigid, no scaphoid, no soft, splenomegaly, tenderness, no umbilical hernia, no ventral hernia - Integumentary Integumentary: no calor, no cellulitis, cyanotic, no decreased turgor, no flushed, no jaundiced, normal, no normal turgor, pale, rash, no ulcer - Neurologic Neurologic: CNII-XII intact - Musculoskeletal Musculoskeletal: gait normal, generalized weakness, no strength equal bilaterally, no right sided weakness, no left sided weakness - Psychiatric Psychiatric: A&O x's 3, appropriate affect - Labs CBC & Chem 7: 09/28/16 06:49 09/28/16 06:49 Labs: Abnormal Lab Results - Last 24 Hours (Table) 09/28/16 09/28/16 09/28/16 Range/Units 06:49 06:49 06:49 WBC 13.8 H (3.8-10.6) k/uL RBC 3.35 L (4.30-5.90) m/uL Hgb 10.1 L (13.0-17.5) gm/dL Hct 29.8 L (39.0-53.0) % PT 16.7 H (9.0-12.0) sec Sodium 134 L (137-145) mmol/L Calcium 8.1 L (8.4-10.2) mg/dL Alkaline Phosphatase 157 H (38-126) U/L Total Protein 5.8 L (6.3-8.2) g/dL Albumin 2.5 L (3.5-5.0) g/dL Assessment and Plan Plan: 1 acute pulmonary embolism: Etiology still not a clear this point. Continue heparin drip and Coumadin at 7.5 mg at bedtime, as the patient and his are not interested in the NOAG. Continue heparin and Coumadin. 2 new diagnosis lung mass more like nodular in the left lower lobe: Patient be seen pulmonary surprisingly this finding especially with the new PE would not be easy to do bronchoscopy and biopsy that required taking him off anticoagulation completely since the spot is small will await for pulmonary final decision might be ramírez just to watch it and repeat another CAT scan in [address] ALEX Donohue. 3 CAD/cardiomyopathy: Patient seen cardiology regular basis he is on Vasotec metoprolol and Lipitor patient can benefit from diuretics if needed. 4 hypertension: Remain well controlled on Vasotec 20 mg a day and metoprolol XL 50 mg daily. 5 hyperlipidemia: Continue Lipitor 40 mg daily. 6 hypothyroidism: Continue patient on levothyroxine 75 g daily. 7 severe depression: Has been on Wellbutrin 300 mg a day. 8 obstructive sleep apnea: Patient has been using CPAP on regular basis. 9 hyperglycemia: Continue patient on Accu-Chek sliding skills coverage. 10 severe CAD post angioplasty and stent placement still seeing cardiology and still on secondary prevention. 11 GI prophylaxis: Patient was started on pantoprazole 40 mg daily. 12 DVT prophylaxis: Patient is on anticoagulation already. 13. Possible obstructive sleep apnea. Patient will need outpatient sleep study done at some point. CODE STATUS: Full code. Discharge plan: Return home Impression and plan of care have been directed as dictated by the signing physician. Stefany Zelaya nurse practitioner acting as scribe for signing physician.
[2016-09-28] MEDS ORDERED: AMIODARONE 200 MG TAB PO STA (18:06)
[2016-09-28 19:01] LABS: Potassium 4.3 mmol/L (3.5-5.1)
[2016-09-28] MEDS: WARFARIN 7.5 MG TAB PO SCH (19:40)
[2016-09-28] MEDS: ATORVASTATIN 40 MG TAB PO SCH ×2 (20:49→20:50)
[2016-09-28] MEDS: LEVOFLOXACIN 500 MG TAB PO SCH (20:50)
[2016-09-28] MEDS: ACETAMINOPHEN TAB 325 MG TAB PO PRN (23:52)
[2016-09-29] MEDS: HEPARIN SODIUM,PORCINE/D5W PMX 25,000 UNIT in DEXTROSE/WATER 1 500ML.BAG IV SCH ×3 (03:27→20:54)
[2016-09-29] MEDS: IPRATROPIUM-ALBUTEROL 3 ML NEB INHALATION SCH ×4 (07:04→19:47)
[2016-09-29] MEDS: PANTOPRAZOLE 40 MG TABLET PO SCH (07:24)
[2016-09-29] MEDS: ASPIRIN 325 MG TAB PO SCH (07:25)
[2016-09-29] MEDS: BENZONATATE 100 MG CAP PO SCH ×3 (07:25→21:08)
[2016-09-29] MEDS: LEVOTHYROXINE 75 MCG TAB PO SCH (07:26)
[2016-09-29] MEDS: LISINOPRIL 20 MG TAB PO SCH (07:26)
[2016-09-29] MEDS: buPROPion XL 300 MG TAB.ER.24H PO SCH (07:26)
[2016-09-29] MEDS: METOPROLOL SUCCINATE (ER) 50 MG TAB.ER.24H PO SCH (07:26)
[2016-09-29 08:09] LABS: CHCM 31.5; HCT 32.1 % (39.0-53.0); HDW 2.54; HGB 10.8 gm/dL (13.0-17.5); Hypochromasia Slight; MCH 29.9 pg (25.0-35.0); MCHC 33.6 g/dL (31.0-37.0); MCV 89.2 fL (80.0-100.0); Mean Platelet Volume 6.8; RDW 13.8 % (11.5-15.5); WBC 12.6 k/uL (3.8-10.6)
[2016-09-29 08:15] LABS: Prothrombin Time 19.2 sec (9.0-12.0)
[2016-09-29 08:30] LABS: ALT 51 U/L (21-72); AST 40 U/L (17-59); Alkaline Phosphatase 160 U/L (38-126); Anion Gap 11 mmol/L; Blood Urea Nitrogen 11 mg/dL (9-20); Carbon Dioxide 22 mmol/L (22-30); Chloride 101 mmol/L (98-107); Glucose 120 mg/dL (74-99); Non-African American GFR(MDRD) >60 (>60 ml/min/1.73 sqM); Sodium 134 mmol/L (137-145); Total Bilirubin 0.6 mg/dL (0.2-1.3); Total Protein 5.8 g/dL (6.3-8.2)
[2016-09-29] MEDS ORDERED: AMIODARONE 200 MG TAB PO SCH (09:00)
--- NOTE | 2016-09-29 09:35 | P.CRDCN ---
History of Present Illness Consult date: 09/29/16 Reason for Consult (text): Nonsustained VT History of present illness: 70-year-old gentleman with history of ischemic cardiomyopathy status post AICD is admitted to hospital with acute large pulmonary embolism. He was initially in the sixth floor and subsequently got transferred to the fifth floor. I have been consulted because of runs of wide-complex tachycardia. Since his admission he has had multiple runs of wide complex tachycardia suggestive of nonsustained VT. An echocardiogram shows moderate to severe LV dysfunction with an ejection fraction of 35%. He was to follow-up with a hotel server in [place] I don't have any records on him. On this admission he denies chest pain difficulty in breathing sustained palpitations dizziness or syncope. He is currently in IV heparin for his pulmonary embolism. Even the persistent runs of wide-complex tachycardia and starting the patient on amiodarone. His electrolytes have been normal serum potassium and magnesium have been within normal limits. Patient denies any symptoms suggestive of acute myocardial ischemia and he is currently not in congestive heart failure. Review of Systems Constitutional: Denies chills. Denies fever. Eyes: Denies blurred vision. Denies pain. Ears, nose, mouth and throat: Denies headache. Denies sore throat. Cardiovascular: Denies chest pain. shortness of breath. Respiratory: Denies cough. Patient has shortness of breath Gastrointestinal: Denies abdominal pain. Denies diarrhea. Denies nausea. Denies vomiting. Musculoskeletal: Denies myalgias. Integumentary: Denies pruritus. Denies rash. Neurological: Denies numbness. Denies weakness. Psychiatric: Denies anxiety. Denies depression. Endocrine: Denies fatigue. Denies weight change. Genitourinary: Denies burning, hematuria, frequency of urination. Hematological: No anemia or excess bleeding. Past Medical History Past Medical History: Coronary Artery Disease (CAD), Hypertension, Myocardial Infarction (CT), Osteoarthritis (OA), Thyroid Disorder Last Myocardial Infarction Date:: 1992 History of Any Multi-Drug Resistant Organisms: None Reported Past Surgical History: AICD, Heart Catheterization With Stent Date of Last Stent Placement:: 1992 Type of Cardiac Device: AICD Device Placement Date:: 2005 Past Psychological History: Anxiety Smoking Status: Former smoker - Past Family History Mother Family Medical History: Cancer, Myocardial Infarction (CT) Additional Family Medical History / Comment(s): Breast, TIAs Father Additional Family Medical History / Comment(s): Alzheimers Brother(s) Family Medical History: Unable to Obtain Sister(s) Additional Family Medical History / Comment(s): anxiety attacks Medications and Allergies Home Medications Medication Instructions Recorded Confirmed Type Aspirin 325 mg PO DAILY 09/22/16 09/22/16 History Atorvastatin [Lipitor] 40 mg PO HS 09/22/16 09/22/16 History Enalapril [Vasotec] 20 mg PO DAILY 09/22/16 09/22/16 History Levothyroxine Sodium [Synthroid] 75 mcg PO DAILY 09/22/16 09/22/16 History Metoprolol Succinate (ER) [Toprol 50 mg PO DAILY 09/22/16 09/22/16 History Xl] buPROPion HCL [Wellbutrin XL] 300 mg PO DAILY 09/22/16 09/22/16 History Allergies Allergy/AdvReac Type Severity Reaction Status Date / Time No Known Allergies Allergy Verified 09/22/16 07:41 Physical Exam Vitals: Vital Signs Temp Pulse Pulse Resp BP BP Pulse Ox 09/29/16 07:16 14 09/29/16 07:14 68 14 09/29/16 07:04 68 14 97 09/29/16 07:00 98 F 56 L 20 133/65 93 L 09/28/16 23:55 17 09/28/16 23:00 97.8 F 68 17 158/71 95 09/28/16 18:30 70 09/28/16 18:20 72 09/28/16 16:57 70 09/28/16 16:41 70 09/28/16 15:51 67 20 09/28/16 15:00 98.2 F 67 20 133/63 94 L 09/28/16 11:31 80 09/28/16 11:15 72 Intake and Output 09/28/16 09/29/16 09/29/16 22:59 06:59 14:59 Intake Total 1660 1800.00 400 Output Total 1400 600 Balance 1660 400.00 -200 Intake: Intake, IV Titration 580 660.00 Amount Heparin Sodium,Porcine/ 500 500.00 D5w Pmx 25,000 unit In Dextrose/Water 1 500ml. bag @ 15.948 UNITS/KG/HR 46 mls/hr IV .[id number] [facility] Rx#:[id number] Sodium Chloride 0.9% 1, 80 160 000 ml @ 20 mls/hr IV . Q24H [facility] Rx#:[id number] Oral 1080 1140 400 Output: Urine 1400 600 Other: Voiding Method Urinal Urinal Urinal # Voids 1 1 General: The patient is awake and alert, in no distress, and does not appear acutely ill. Skin: Skin is warm and dry and no rashes or lesions are noted. Eye: Pupils are equal, round and reactive to light, extra-ocular movements are intact; there is normal conjunctiva bilaterally. Ears, nose, mouth and throat: There are moist mucous membranes and no oral lesions. Neck: The neck is supple, there is no tenderness or JVD. Cardiovascular: There is a regular rate and rhythm. No murmur, rub or gallop is appreciated. Respiratory: Lungs are clear to auscultation, respirations are non-labored, breath sounds are equal. Gastrointestinal: Soft, non-distended, non-tender abdomen without masses or organomegaly noted. There is no rebound or guarding present. Bowel sounds are unremarkable. Back: There is no tenderness to palpation in the midline. There is no obvious deformity. Musculoskeletal: Normal ROM, no tenderness, There is no pedal edema. There is no calf tenderness or swelling. Extremities: No edema. Vascular: Femoral pulse is normal. Posterior tibial pulses are normal .Dorsalis pedis is palpable. Neurological: CN II-XII intact. There are no obvious motor or sensory deficits. Speech is normal. Psychiatric: Cooperative, appropriate mood & affect, normal judgment. Results 09/29/16 07:38 09/29/16 07:38 Cardiac Enzymes 09/29/16 Range/Units 07:38 AST 40 (17-59) U/L Coagulation 09/28/16 09/28/16 09/29/16 Range/Units 16:45 23:45 07:38 PT 19.2 H (9.0-12.0) sec APTT 95.3 H 83.7 H (22.0-30.0) sec 09/29/16 Range/Units 07:38 PT (9.0-12.0) sec APTT 71.3 H (22.0-30.0) sec CBC 09/29/16 Range/Units 07:38 WBC 12.6 H (3.8-10.6) k/uL RBC 3.60 L (4.30-5.90) m/uL Hgb 10.8 L (13.0-17.5) gm/dL Hct 32.1 L (39.0-53.0) % Plt Count 377 (150-450) k/uL Comprehensive Metabolic Panel 09/28/16 09/29/16 Range/Units 18:30 07:38 Sodium 136 L 134 L (137-145) mmol/L Potassium 4.3 4.0 (3.5-5.1) mmol/L Chloride 103 101 (98-107) mmol/L Carbon Dioxide 24 22 (22-30) mmol/L BUN 11 (9-20) mg/dL Creatinine 0.68 (0.66-1.25) mg/dL Glucose 120 H (74-99) mg/dL Calcium 8.0 L (8.4-10.2) mg/dL AST 40 (17-59) U/L ALT 51 (21-72) U/L Alkaline Phosphatase 160 H (38-126) U/L Total Protein 5.8 L (6.3-8.2) g/dL Albumin 2.5 L (3.5-5.0) g/dL Current Medications Generic Name Dose Route Start Last Admin Trade Name Freq PRN Reason Stop Dose Admin Acetaminophen 650 mg 09/23/16 23:08 09/28/16 23:52 Tylenol Tab PO 650 mg Q4HR PRN Administration Fever and/ or Pain Albuterol/Ipratropium 3 ml 09/22/16 21:09 Duoneb 0.5 Mg-3 Mg/3 Ml Soln INHALATION RT-QID PRN Shortness Of Breath Or Wheezing Albuterol/Ipratropium 3 ml 09/23/16 08:00 09/29/16 07:04 Duoneb 0.5 Mg-3 Mg/3 Ml Soln INHALATION 3 ml RT-QID [facility] Administration Amiodarone HCl 400 mg 09/29/16 09:00 09/29/16 07:25 Cordarone PO 400 mg BID [facility] Administration Aspirin 325 mg 09/22/16 09:00 09/29/16 07:25 Aspirin PO 325 mg DAILY [facility] Administration Atorvastatin Calcium 40 mg 09/22/16 21:00 09/28/16 20:50 Lipitor PO 40 mg HS [facility] Administration Benzonatate 100 mg 09/28/16 13:00 09/29/16 07:25 Tessalon Perles PO 100 mg TID [facility] Administration Bupropion HCl 300 mg 09/22/16 09:00 09/29/16 07:26 Wellbutrin Xl PO 300 mg DAILY [facility] Administration Heparin Sodium (Porcine) 0 unit 09/22/16 08:24 09/28/16 08:51 Heparin IV 10,000 unit PER PROTOCOL PRN Administration Low PTT Protocol Heparin Sodium/Dextrose 25,000 500 mls @ 46 mls/hr 09/22/16 00:31 09/29/16 03 :27 unit/ IV Solution IV 21 units/kg/hr .[id number] [facility] 60.58 mls/hr Protocol Administration 15.948 UNITS/KG/HR Sodium Chloride 1,000 mls @ 20 mls/hr 09/25/16 13:32 09/28/16 13:34 Saline 0.9% IV Not Given .Q24H [facility] Levofloxacin 500 mg 09/24/16 20:00 09/28/16 20:50 Levaquin PO 500 mg Q24H [facility] Administration Levothyroxine Sodium 75 mcg 09/22/16 09:00 09/29/16 07:26 Synthroid PO 75 mcg DAILY [facility] Administration Lisinopril 40 mg 09/22/16 09:00 09/29/16 07:26 Zestril PO 40 mg DAILY [facility] Administration Metoprolol Succinate 50 mg 09/22/16 09:00 09/29/16 07:26 Toprol Xl PO 50 mg DAILY [facility] Administration Naloxone HCl 0.2 mg 09/22/16 00:52 Narcan IV Q2M PRN Opioid Reversal Pantoprazole Sodium 40 mg 09/22/16 09:30 09/29/16 07:24 Protonix PO 40 mg [id number] [facility] Administration Warfarin Sodium 7.5 mg 09/28/16 18:00 09/28/16 19:40 Coumadin PO 7.5 mg DAILY@1800 [facility] Administration Intake and Output 09/28/16 09/29/16 09/29/16 22:59 06:59 14:59 Intake Total 1660 1800.00 400 Output Total 1400 600 Balance 1660 400.00 -200 Intake: Intake, IV Titration 580 660.00 Amount Heparin Sodium,Porcine/ 500 500.00 D5w Pmx 25,000 unit In Dextrose/Water 1 500ml. bag @ 15.948 UNITS/KG/HR 46 mls/hr IV .[id number] [facility] Rx#:[id number] Sodium Chloride 0.9% 1, 80 160 000 ml @ 20 mls/hr IV . Q24H [facility] Rx#:[id number] Oral 1080 1140 400 Output: Urine 1400 600 Other: Voiding Method Urinal Urinal Urinal # Voids 1 1 09/29/16 07:38 09/29/16 07:38 Assessment and Plan Plan: Ventricular tachycardia Status post AICD Skin a cardiomyopathy Pulmonary embolism Patient is on beta ulysses I will continue the same reviewed echo results with the patient I will review outpatient records. We will check the device. And starting him on amiodarone.
[2016-09-29] MEDS: SODIUM CHLORIDE 0.9% 1,000 ML IV SCH (11:46)
--- NOTE | 2016-09-29 14:14 | P.PN ---
Subjective Principal diagnosis: Pulmonary embolism Patient seen and examined with at bedside. Patient having pacemaker interrogated. States his breathing is good today. He denies fevers, chills, chest pain. Objective - Vital Signs Vital signs: Vital Signs Temp 98 F 09/29/16 07:00 Pulse 73 09/29/16 11:34 Resp 16 09/29/16 11:34 BP 133/65 09/29/16 07:00 Pulse Ox 97 09/29/16 07:04 Intake & Output 09/28/16 09/29/16 09/29/16 18:59 06:59 18:59 Intake Total 1380 2960.00 900 Output Total 1400 600 Balance 1380 1560.00 300 Intake: Intake, IV Titration 660 740.00 500 Amount Heparin Sodium,Porcine/ 500 500.00 500 D5w Pmx 25,000 unit In Dextrose/Water 1 500ml. bag @ 15.948 UNITS/KG/HR 46 mls/hr IV .[id number] [facility] Rx#:[id number] Sodium Chloride 0.9% 1, 160 240 000 ml @ 20 mls/hr IV . Q24H [facility] Rx#:[id number] Oral 720 2220 400 Output: Urine 1400 600 Other: Voiding Method Urinal Urinal Urinal # Voids 3 1 1 - Exam General: Alert and oriented 3, no acute distress, obese Cardiovascular: Regular rate and rhythm, S1/S2 Lungs: Diminished breath sounds bilaterally Abdomen: Soft nontender nondistended positive bowel sounds Extremities: Trace edema - Labs CBC & Chem 7: 09/29/16 07:38 09/29/16 07:38 Labs: Abnormal Lab Results - Last 24 Hours (Table) 09/28/16 09/28/16 09/28/16 Range/Units 16:45 18:30 23:45 WBC (3.8-10.6) k/uL RBC (4.30-5.90) m/uL Hgb (13.0-17.5) gm/dL Hct (39.0-53.0) % PT (9.0-12.0) sec APTT 95.3 H 83.7 H (22.0-30.0) sec Sodium 136 L (137-145) mmol/L Glucose (74-99) mg/dL Calcium (8.4-10.2) mg/dL Alkaline Phosphatase (38-126) U/L Total Protein (6.3-8.2) g/dL Albumin (3.5-5.0) g/dL 09/29/16 09/29/16 09/29/16 Range/Units 07:38 07:38 07:38 WBC 12.6 H (3.8-10.6) k/uL RBC 3.60 L (4.30-5.90) m/uL Hgb 10.8 L (13.0-17.5) gm/dL Hct 32.1 L (39.0-53.0) % PT 19.2 H (9.0-12.0) sec APTT (22.0-30.0) sec Sodium 134 L (137-145) mmol/L Glucose 120 H (74-99) mg/dL Calcium 8.0 L (8.4-10.2) mg/dL Alkaline Phosphatase 160 H (38-126) U/L Total Protein 5.8 L (6.3-8.2) g/dL Albumin 2.5 L (3.5-5.0) g/dL 09/29/16 Range/Units 07:38 WBC (3.8-10.6) k/uL RBC (4.30-5.90) m/uL Hgb (13.0-17.5) gm/dL Hct (39.0-53.0) % PT (9.0-12.0) sec APTT 71.3 H (22.0-30.0) sec Sodium (137-145) mmol/L Glucose (74-99) mg/dL Calcium (8.4-10.2) mg/dL Alkaline Phosphatase (38-126) U/L Total Protein (6.3-8.2) g/dL Albumin (3.5-5.0) g/dL Assessment and Plan Plan: Acute right pulmonary embolism Possible right-sided lung mass versus infectious etiology Pulmonary nodule - left Right-sided chest pain Morbid obesity KEN History of tobacco abuse Dyspnea on exertion O2 to maintain saturation greater than equal to 88% Coumadin therapeutic, DC heparin Antibiotics: Levaquin x 10 days total Bronchodilators Unable to do bronchoscopy with biopsy at this time secondary to acute PE, this is discussed with the patient and his A repeat CT will be done in 4-6 weeks as an outpatient after treatment with antibiotics If suspicious lesion remains we will consider PET scan Encourage ambulation Ok to DC from pulmonary standpoint once cleared by cardiology
--- NOTE | 2016-09-29 14:30 | P.PN ---
Subjective 70-year-old male one of Dr. Eric Gardner's patient with past medical history of COPD, CAD, advanced cardiomyopathy post AICD, history of hypothyroidism and history of obstructive sleep apnea who was smoked or for over 30 years quit 10 years ago has been doing well until the last few days when he become with worsening shortness of breath cough and wheezes symptoms become much worse ended up seen Dr. Gardner this past week chest x-ray apparently was performed and failed to show any infiltrate consistent as a pneumonia. Patient having has discomfort and shortness of breath become much worse last night ended up going to [place] emergency department where was seen and evaluated his d-dimer came back elevated with significantly abnormal CTA consistent with large pulmonary embolism. Patient was started on heparin drip his CAT scan also showed 1.8 cm nodule lung base with the current symptoms and needing pulmonary physician patient was transferred to [facility] where was seen in the emergency room and hospitalized shortly after on heparin drip for his PE will consult pulmonary for his lung mass. 09/23/2016: Patient is feeling better today, he denies any chest pain, is less short of breath, he continues to have some coughing, his was at the bedside she is requesting a nebulizer to go home with, and they cannot afford Xarelto at this point in time, we will plan to use Coumadin instead of NOAG. 09/24/2016: Patient is a young man in no apparent distress, he denies any shortness of breath, he denies any pleurisy, he has no hemoptysis, he continues to respond very well to the therapy, he would be started on Coumadin at 7.5 mg tonight. Continue heparin drip until his INR therapeutic. 09/25/2016: Patient sitting up in bed appears to be more short of breath today, complaining phlegm drainage in the back of the throat, there is no pleurisy but appears to be more short of breath. He has no nausea vomiting or diarrhea. 09/26: Repeat chest x-ray shows progressive infiltrates in the right perihilar and right upper lobe region. Right basilar atelectasis or additional infiltrate. Echo cardio gram shows mild mitral regurgitation, mild tricuspid regurgitation, mild pulmonary hypertension, cannot rule out vegetation, moderate concentric left ventricular hypertrophy, EF 30-35%, LV wall hypokinetic. INR is currently 1.4. He has continued on heparin drip as well. Coumadin 7.5 mg will be given tonight. Liver function tests are improving with alkaline phosphatase 145. Sputum culture showing contamination. 09/27: Patient has been moved to the [facility] floor. INR today of 1.6. Patient will be continued on heparin drip and Coumadin 7.5 mg will be given tonight. Recheck INR in the morning. WBC is down to 16. 09/28: INR is 1.7, WBC 13.8. Patient will be given another 7.5 mg of Coumadin tonight and continued on heparin drip. Patient did have episode of V. tach but was asymptomatic yesterday, last evening. He is in a paced rhythm with AICD. Echocardiogram was recently done. He needs them level will be checked. Cardiology consult also added. Lasix 40 mg IV 1 ordered. 09/29: INR today is at 2.0. Patient will be continued on heparin drip and Coumadin for another 24 hours. Coumadin 7.5 mg scheduled for tonight. Patient has been seen by Dr. Honeycutt from cardiology and started on amiodarone. Thus, due to medication interactions, we have changed Levaquin to Augmentin. AICD to be interrogated. Patient denies any shortness of breath. He is ambulating. Patient is anxious to go home. Objective - Vital Signs Vital signs: Vital Signs Temp 98 F 09/29/16 07:00 Pulse 68 09/29/16 07:14 Resp 14 09/29/16 07:16 BP 133/65 09/29/16 07:00 Pulse Ox 97 09/29/16 07:04 Intake & Output 09/28/16 09/29/16 09/29/16 18:59 06:59 18:59 Intake Total 1380 2960.00 400 Output Total 1400 600 Balance 1380 1560.00 -200 Intake: Intake, IV Titration 660 740.00 Amount Heparin Sodium,Porcine/ 500 500.00 D5w Pmx 25,000 unit In Dextrose/Water 1 500ml. bag @ 15.948 UNITS/KG/HR 46 mls/hr IV .[id number] VIDHI Rx#:[id number] Sodium Chloride 0.9% 1, 160 240 000 ml @ 20 mls/hr IV . Q24H VIDHI Rx#:[id number] Oral 720 2220 400 Output: Urine 1400 600 Other: Voiding Method Urinal Urinal Urinal # Voids 3 1 1 - Exam General appearance: no average body habitus, cooperative, no disheveled, no mild distress, no morbidly obese, no acute distress, no obese, no severe distress, no thin - EENT Eyes: no abnormal pupil, no anicteric sclerae, no disc margins sharp, no edentulous, no EOMI, no PERRLA, no fundus normal, no photophobia, no dentition normal, no poor dentition, no ptosis, no scleral icterus, normal appearance ENT: hard of hearing, no hearing grossly normal, no NA/AT, normal oropharynx, no other, no pharyngeal erythema, no thrush, no tonsillar exudates, no tonsillar swelling Ears: bilateral: normal - Neck Neck: no lymphadenopathy, normal ROM, no other, no rigidity, no stridor, no thyromegaly Carotids: bilateral: upstroke normal Thyroid: bilateral: normal size - Respiratory Respiratory: bilateral: diminished, dullness, rales, rhonchi, wheezing - Cardiovascular Rhythm: regular Heart sounds: normal: S1, S2 Abnormal Heart Sounds: systolic murmur - Gastrointestinal General gastrointestinal: no absent bowel sounds, no decreased bowel sounds, distended, no hepatomegaly, no hyperactive bowel sounds, normal bowel sounds, organomegaly, no rigid, no scaphoid, no soft, splenomegaly, tenderness, no umbilical hernia, no ventral hernia - Integumentary Integumentary: no calor, no cellulitis, cyanotic, no decreased turgor, no flushed, no jaundiced, normal, no normal turgor, pale, rash, no ulcer - Neurologic Neurologic: CNII-XII intact - Musculoskeletal Musculoskeletal: gait normal, generalized weakness, no strength equal bilaterally, no right sided weakness, no left sided weakness - Psychiatric Psychiatric: A&O x's 3, appropriate affect - Labs CBC & Chem 7: 09/29/16 07:38 09/29/16 07:38 Labs: Abnormal Lab Results - Last 24 Hours (Table) 09/28/16 09/28/16 09/28/16 Range/Units 16:45 18:30 23:45 WBC (3.8-10.6) k/uL RBC (4.30-5.90) m/uL Hgb (13.0-17.5) gm/dL Hct (39.0-53.0) % PT (9.0-12.0) sec APTT 95.3 H 83.7 H (22.0-30.0) sec Sodium 136 L (137-145) mmol/L Glucose (74-99) mg/dL Calcium (8.4-10.2) mg/dL Alkaline Phosphatase (38-126) U/L Total Protein (6.3-8.2) g/dL Albumin (3.5-5.0) g/dL 09/29/16 09/29/16 09/29/16 Range/Units 07:38 07:38 07:38 WBC 12.6 H (3.8-10.6) k/uL RBC 3.60 L (4.30-5.90) m/uL Hgb 10.8 L (13.0-17.5) gm/dL Hct 32.1 L (39.0-53.0) % PT 19.2 H (9.0-12.0) sec APTT (22.0-30.0) sec Sodium 134 L (137-145) mmol/L Glucose 120 H (74-99) mg/dL Calcium 8.0 L (8.4-10.2) mg/dL Alkaline Phosphatase 160 H (38-126) U/L Total Protein 5.8 L (6.3-8.2) g/dL Albumin 2.5 L (3.5-5.0) g/dL Assessment and Plan Plan: 1 acute pulmonary embolism: Etiology still not a clear this point. Continue heparin drip and Coumadin at 7.5 mg at bedtime, as the patient and his are not interested in the NOAG. Continue heparin and Coumadin. 2 new diagnosis lung mass more like nodular in the left lower lobe: Patient be seen pulmonary surprisingly this finding especially with the new PE would not be easy to do bronchoscopy and biopsy that required taking him off anticoagulation completely since the spot is small will await for pulmonary final decision might be ramírez just to watch it and repeat another CAT scan in [address] ALEX Donohue. 3 CAD with cardiomyopathy: Patient seen cardiology regular basis he is on Vasotec metoprolol and Lipitor patient can benefit from diuretics if needed. 4 hypertension: Remain well controlled on Vasotec 20 mg a day and metoprolol XL 50 mg daily. 5 hyperlipidemia: Continue Lipitor 40 mg daily. 6 hypothyroidism: Continue patient on levothyroxine 75 g daily. 7 severe depression, recurrent: Has been on Wellbutrin 300 mg a day. 8 obstructive sleep apnea: Patient has been using CPAP on regular basis. 9 hyperglycemia: Continue patient on Accu-Chek sliding skills coverage. 10 severe CAD post angioplasty and stent placement still seeing cardiology and still on secondary prevention. 11 GI prophylaxis: Patient was started on pantoprazole 40 mg daily. 12 DVT prophylaxis: Patient is on anticoagulation already. 13. Possible obstructive sleep apnea. Patient will need outpatient sleep study done at some point. CODE STATUS: Full code. Discharge plan: Return home Impression and plan of care have been directed as dictated by the signing physician. Stefany Zelaya nurse practitioner acting as scribe for signing physician.
[2016-09-29] MEDS: WARFARIN 7.5 MG TAB PO SCH (17:28)
[2016-09-29] MEDS ORDERED: AMIODARONE 200 MG TAB PO ONE (21:00)
[2016-09-29] MEDS: AMOXIC-POT CLAV 875-125MG 1 EACH TAB PO SCH (21:08)
[2016-09-30] MEDS: HEPARIN SODIUM,PORCINE/D5W PMX 25,000 UNIT in DEXTROSE/WATER 1 500ML.BAG IV SCH (05:43)
[2016-09-30 08:01] LABS: CH 28.6; CHCM 32.3; HCT 30.1 % (39.0-53.0); HDW 2.52; HGB 9.9 gm/dL (13.0-17.5); MCH 29.2 pg (25.0-35.0); MCHC 32.9 g/dL (31.0-37.0); MCV 88.8 fL (80.0-100.0); RBC 3.39 m/uL (4.30-5.90); RDW 14.3 % (11.5-15.5); WBC 14.2 k/uL (3.8-10.6)
[2016-09-30 08:11] LABS: INR 2.6 (<1.1); Partial Thromboplastin Time 76.5 sec (22.0-30.0); Prothrombin Time 25.5 sec (9.0-12.0)
[2016-09-30 08:18] LABS: ALT 55 U/L (21-72); AST 33 U/L (17-59); Alkaline Phosphatase 162 U/L (38-126); Anion Gap 10 mmol/L; Blood Urea Nitrogen 10 mg/dL (9-20); Calcium 8.2 mg/dL (8.4-10.2); Carbon Dioxide 24 mmol/L (22-30); Chloride 101 mmol/L (98-107); Glucose 103 mg/dL (74-99); Non-African American GFR(MDRD) >60 (>60 ml/min/1.73 sqM); Potassium 4.2 mmol/L (3.5-5.1); Sodium 135 mmol/L (137-145); Total Bilirubin 0.4 mg/dL (0.2-1.3); Total Protein 5.5 g/dL (6.3-8.2)
[2016-09-30] MEDS: AMOXIC-POT CLAV 875-125MG 1 EACH TAB PO SCH (08:27)
[2016-09-30] MEDS: ASPIRIN 325 MG TAB PO SCH (08:27)
[2016-09-30] MEDS: PANTOPRAZOLE 40 MG TABLET PO SCH (08:27)
[2016-09-30] MEDS: BENZONATATE 100 MG CAP PO SCH (08:28)
[2016-09-30] MEDS: LEVOTHYROXINE 75 MCG TAB PO SCH (08:28)
[2016-09-30] MEDS: buPROPion XL 300 MG TAB.ER.24H PO SCH (08:28)
[2016-09-30] MEDS: LISINOPRIL 20 MG TAB PO SCH (08:28)
[2016-09-30] MEDS: METOPROLOL SUCCINATE (ER) 50 MG TAB.ER.24H PO SCH (08:29)
[2016-09-30] MEDS: IPRATROPIUM-ALBUTEROL 3 ML NEB INHALATION SCH (08:55)
[2016-09-30] MEDS ORDERED: AMIODARONE 200 MG TAB PO SCH (09:00)
[2016-09-30 09:34] VITALS: BP 139/75; PULSE 71; RESP 20; TEMP 98.2
--- NOTE | 2016-10-01 12:05 | P.DS ---
Providers Date of admission: 09/22/16 00:52 Expected date of discharge: 09/30/16 Attending physician: Liu Dawn Consults: 09/22/16 00:53 Consult Physician Routine Consulting Provider: Jann Donohue Consult Reason/Comments: Pulmonary embolism and lung mass Do you want consulting provider notified?: Yes 09/28/16 12:41 Consult Physician Routine Consulting Provider: Neeraj Smith Consult Reason/Comments: v tach last pm, asymtomatic Do you want consulting provider notified?: Yes Primary care physician: Eric Gardner [facility] Course: 70-year-old male one of Dr. Eric Gardner's patient with past medical history of COPD, CAD, advanced cardiomyopathy post AICD, history of hypothyroidism and history of obstructive sleep apnea who was smoked or for over 30 years quit 10 years ago has been doing well until the last few days when he become with worsening shortness of breath cough and wheezes symptoms become much worse ended up seen Dr. Gardner this past week chest x-ray apparently was performed and failed to show any infiltrate consistent as a pneumonia. Patient having has discomfort and shortness of breath become much worse last night ended up going to [place] emergency department where was seen and evaluated his d-dimer came back elevated with significantly abnormal CTA consistent with large pulmonary embolism. Patient was started on heparin drip his CAT scan also showed 1.8 cm nodule lung base with the current symptoms and needing pulmonary physician patient was transferred to [facility] where was seen in the emergency room and hospitalized shortly after on heparin drip for his PE will consult pulmonary for his lung mass. 09/23/2016: Patient is feeling better today, he denies any chest pain, is less short of breath, he continues to have some coughing, his was at the bedside she is requesting a nebulizer to go home with, and they cannot afford Xarelto at this point in time, we will plan to use Coumadin instead of NOAG. 09/24/2016: Patient is a young man in no apparent distress, he denies any shortness of breath, he denies any pleurisy, he has no hemoptysis, he continues to respond very well to the therapy, he would be started on Coumadin at 7.5 mg tonight. Continue heparin drip until his INR therapeutic. 09/25/2016: Patient sitting up in bed appears to be more short of breath today, complaining phlegm drainage in the back of the throat, there is no pleurisy but appears to be more short of breath. He has no nausea vomiting or diarrhea. 09/26: Repeat chest x-ray shows progressive infiltrates in the right perihilar and right upper lobe region. Right basilar atelectasis or additional infiltrate. Echo cardio gram shows mild mitral regurgitation, mild tricuspid regurgitation, mild pulmonary hypertension, cannot rule out vegetation, moderate concentric left ventricular hypertrophy, EF 30-35%, LV wall hypokinetic. INR is currently 1.4. He has continued on heparin drip as well. Coumadin 7.5 mg will be given tonight. Liver function tests are improving with alkaline phosphatase 145. Sputum culture showing contamination. 09/27: Patient has been moved to the [facility] floor. INR today of 1.6. Patient will be continued on heparin drip and Coumadin 7.5 mg will be given tonight. Recheck INR in the morning. WBC is down to 16. 09/28: INR is 1.7, WBC 13.8. Patient will be given another 7.5 mg of Coumadin tonight and continued on heparin drip. Patient did have episode of V. tach but was asymptomatic yesterday, last evening. He is in a paced rhythm with AICD. Echocardiogram was recently done. He needs them level will be checked. Cardiology consult also added. Lasix 40 mg IV 1 ordered. 09/29: INR today is at 2.0. Patient will be continued on heparin drip and Coumadin for another 24 hours. Coumadin 7.5 mg scheduled for tonight. Patient has been seen by Dr. Honeycutt from cardiology and started on amiodarone. Thus, due to medication interactions, we have changed Levaquin to Augmentin. AICD to be interrogated. Patient denies any shortness of breath. He is ambulating. Patient is anxious to go home. 09/30: INR is 2.6. Patient denies any new concerns or complaints. He denies any shortness of breath or chest pain. He is ambulating with no lightheadedness or dizziness. Patient will be discharged home today in stable condition. Discharge diagnoses: 1 acute pulmonary embolism 2 new diagnosis lung mass more like nodular in the left lower lobe 3 CAD with cardiomyopathy 4 hypertension 5 hyperlipidemia 6 hypothyroidism 7 severe depression, recurrent 8 obstructive sleep apnea 9 hyperglycemia 10 severe CAD post angioplasty and stent placement 11 Possible obstructive sleep apnea. Patient will need outpatient sleep study done at some point. Discharge plan: Return home Impression and plan of care have been directed as dictated by the signing physician. Stefany Zelaya nurse practitioner acting as scribe for signing physician. Patient Condition at Discharge: Good Plan - Discharge Summary New Discharge Prescriptions: New Amiodarone [Cordarone] 200 mg PO BID #60 tab Amoxic-Pot Clav 875-125Mg [Augmentin 875-125] 1 each PO Q12HR #10 tab Benzonatate [Tessalon Perles] 100 mg PO TID #20 cap Pantoprazole [Protonix] 40 mg PO AC-BRKFST #30 tab Warfarin Sodium [Coumadin] 6 mg PO DAILY #30 tablet Aspirin EC [Ecotrin Low Dose] 81 mg PO DAILY #30 tablet. Continue buPROPion HCL [Wellbutrin XL] 300 mg PO DAILY Metoprolol Succinate (ER) [Toprol XL] 50 mg PO DAILY Levothyroxine Sodium [Synthroid] 75 mcg PO DAILY Enalapril [Vasotec] 20 mg PO DAILY Atorvastatin [Lipitor] 40 mg PO HS Discontinued Aspirin 325 mg PO DAILY Discharge Medication List Atorvastatin [Lipitor] 40 mg PO HS 09/22/16 [History] Enalapril [Vasotec] 20 mg PO DAILY 09/22/16 [History] Levothyroxine Sodium [Synthroid] 75 mcg PO DAILY 09/22/16 [History] Metoprolol Succinate (ER) [Toprol XL] 50 mg PO DAILY 09/22/16 [History] buPROPion HCL [Wellbutrin XL] 300 mg PO DAILY 09/22/16 [History] Amiodarone [Cordarone] 200 mg PO BID #60 tab 09/30/16 [Rx] Amoxic-Pot Clav 875-125Mg [Augmentin 875-125] 1 each PO Q12HR #10 tab 09/30/16 [ Rx] Aspirin EC [Ecotrin Low Dose] 81 mg PO DAILY #30 tablet. 09/30/16 [Rx] Benzonatate [Tessalon Perles] 100 mg PO TID #20 cap 09/30/16 [Rx] Pantoprazole [Protonix] 40 mg PO AC-BRKFST #30 tab 09/30/16 [Rx] Warfarin Sodium [Coumadin] 6 mg PO DAILY #30 tablet 09/30/16 [Rx] Follow up Appointment(s)/Referral(s): Usha Arnett MD [STAFF PHYSICIAN] - 1 Week (Patient to call Dr. arnett's office Sunday to schedule follow up appointment. The office is closed at time of discharge.) Jann Donohue MD [STAFF PHYSICIAN] - 1 Week (Patient to call Dr. Duran's office Sunday to schedule follow up appointment. The office is closed at time of discharge. OP sleep study, repeat CT.) Eric Gardner MD [Primary Care Provider] - 1 Week (Patient to call Dr. Gardner's office Sunday to schedule follow up appointment. The office is closed at time of discharge.) Ambulatory/Diagnostic Orders: Prothrombin Time INR [LAB.AMB] Location: Determined By Patient Patient Instructions/Handouts: Benzonatate (By mouth), Warfarin (By mouth), Aspirin (By mouth), Amoxicillin/Clavulanate Potassium (By mouth), Amiodarone ( By mouth), Pantoprazole (By mouth), Pulmonary Embolism (DC), Vitamin K in Foods (DC) Activity/Diet/Wound Care/Special Instructions: Activity as tolerated. Discharge Disposition: HOME SELF-CARE
== END 2016-09-30 11:45 | disposition home or self-care (01) | DRG 176 ==
LOC: EC 00:22 → 6SEL 00:52 → 5MS5E 09-26 15:26
PROVIDERS: ADMIT Internal Medicine Geriatric Medicine; ATTEND Internal Medicine Geriatric Medicine
DX: I26.99 Other pulmonary embolism without acute cor pulmonale (principal); I47.2 Ventricular tachycardia; I27.2 Other secondary pulmonary hypertension; I11.0 Hypertensive heart disease with heart failure; I50.9 Heart failure, unspecified; J98.11 Atelectasis; I08.1 Rheumatic disorders of both mitral and tricuspid valves; F32.9 Major depressive disorder, single episode, unspecified; E03.9 Hypothyroidism, unspecified; E66.9 Obesity, unspecified; E78.5 Hyperlipidemia, unspecified; F41.9 Anxiety disorder, unspecified; G47.33 Obstructive sleep apnea (adult) (pediatric); I25.10 Atherosclerotic heart disease of native coronary artery without angina pectoris; I25.2 Old myocardial infarction; I25.5 Ischemic cardiomyopathy; J44.9 Chronic obstructive pulmonary disease, unspecified; Z79.82 Long term (current) use of aspirin; Z79.899 Other long term (current) drug therapy; Z82.49 Family history of ischemic heart disease and other diseases of the circulatory system; Z87.891 Personal history of nicotine dependence; Z95.810 Presence of automatic (implantable) cardiac defibrillator; R73.9 Hyperglycemia, unspecified
CPT/HCPCS: 71010; 74176; 80051; 80053; 83735; 85025; 85027; 85610; 85730; 87070; 87205; 93005; 93306; 93970; 94640; 94760; 96365; 99285